=== PATIENT | male | born 1975 | race Caucasian/White ===

== ENCOUNTER → 2016-10-31 | Outpatient (REF) | payer OTHER ==
[~2016-10-31] MED LIST: CYCL5TA PO; LISI-538 PO; NAPR500T PO; OMEP40CA2 PO; SIMV40TA2 PO
[2016-10-31 14:25] LABS: BASO % 0.2 % (0.0-1.0); EOS # 0.1 K/mm3 (0.0-0.50); EOS % 1.6 % (0.0-3.0); LARGE UNSTAINED CELL # 0.1 K/mm3 (0.0-0.4); LARGE UNSTAINED CELL % 1.2 % (0.0-4.0); LYMPH # 1.9 K/mm3 (1.5-4.5); LYMPH % 21.1 % (24.0-44.0); MEAN CORPUSCULAR HEMOGLOBIN 35.7 pg (27.0-33.0); MEAN CORPUSCULAR HGB CONC 34.5 g/dl (32.0-36.5); MEAN CORPUSCULAR VOLUME 103.4 fl (80.0-96.0); MONO # 0.4 K/mm3 (0.0-0.8); MONO % 4.6 % (0.0-5.0); NEUTROPHILS # 6.1 K/mm3 (1.8-7.7); NEUTROPHILS % 71.3 % (36.0-66.0); PLATELET COUNT, AUTOMATED 201 k/mm3 (150-450); RED CELL DISTRIBUTION WIDTH 13.2 % (11.5-14.5); WHITE BLOOD COUNT 8.5 K/mm3 (4.0-10.0)
[2016-10-31 14:47] LABS: ALBUMIN 4.6 GM/DL (3.2-5.2); ALBUMIN/GLOBULIN RATIO 1.18 (1.00-1.93); ALKALINE PHOSPHATASE 76 U/L (45-117); ALT/SGPT 23 U/L (12-78); ANION GAP 8 MEQ/L (8-16); AST/SGOT 12 U/L (15-37); BILIRUBIN,TOTAL 0.5 MG/DL (0.2-1.0); BLOOD UREA NITROGEN 15 MG/DL (7-18); CALCIUM LEVEL 8.9 MG/DL (8.5-10.1); CARBON DIOXIDE LEVEL 26 MEQ/L (21-32); CHLORIDE LEVEL 104 MEQ/L (98-107); CHOLESTEROL LEVEL 318 MG/DL (<200); CREATININE FOR GFR 0.97 MG/DL (0.70-1.30); GLOMERULAR FILTRATION RATE > 60.0 (>60); GLUCOSE, FASTING 117 MG/DL (70-105); POTASSIUM SERUM 3.9 MEQ/L (3.5-5.1); SODIUM LEVEL 138 MEQ/L (136-145); TOTAL PROTEIN 8.5 GM/DL (6.4-8.2); TRIGLYCERIDES LEVEL 389 MG/DL (<150)
== END ==
LOC: M LAB REF 14:13
PROVIDERS: ATTEND Physician Assistant
DX: R53.83 Other fatigue (principal); R63.4 Abnormal weight loss

== ENCOUNTER → 2016-11-06 | Outpatient (REF) | payer OTHER | LOC: M LAB REF 16:12 | PROVIDERS: ATTEND Physician Assistant Medical | DX: J11.1 Influenza due to unidentified influenza virus with other respiratory manifestations (principal) ==

== ENCOUNTER 2016-11-10 08:17 | Emergency (ER) | payer OTHER ==
[~2016-11-10] VITALS: Ht 195.6 cm; Wt 111.1 kg
[2016-11-10] MEDS ORDERED: LISI-538 PO (08:30)
[2016-11-10] MEDS ORDERED: OMEP40CA2 PO (08:30)
[2016-11-10] MEDS ORDERED: SIMV40TA2 PO (08:30)
[2016-11-10] MEDS ORDERED: PERCOCET 5MG/325MG TAB PO ONE (08:45)
--- NOTE | 2016-11-10 09:11 | REP ---
Clinical: Trauma . Technique: AP, lateral, bilateral oblique views of the left elbow. Findings: No acute fracture or dislocation is appreciated. Joint spaces and surrounding soft tissues appear normal. Lateral view demonstrates normal positioning to the anterior and posterior fat pads without evidence for effusion/hemarthrosis. No subcutaneous emphysema or foreign body identified. Impression: Normal left elbow radiographs. Signed by Dutch Loera MD 11/10/2016 09:02 A
--- NOTE | 2016-11-10 09:12 | REP ---
Clinical: Trauma . Technique: Internal rotation, external rotation, and Y view left shoulder . Findings: No acute fracture or dislocation. The acromioclavicular and glenohumeral joints are intact. No periarticular calcifications or degenerative changes are appreciated. Sub acromial space is normal. Surrounding soft tissues are unremarkable. Impression: Normal left shoulder radiographs. Signed by Dutch Loera MD 11/10/2016 09:03 A
[2016-11-10] MEDS ORDERED: NAPR500T PO (09:59)
[2016-11-10] MEDS ORDERED: CYCL5TA PO (10:00)
[2016-11-10 10:18] VITALS: BP 159/101
== END 2016-11-10 10:19 | disposition home or self-care (01) ==
LOC: EDBD 08:17 → M ED 09:25
DX: S40.012A Contusion of left shoulder, initial encounter (principal); S50.02XA Contusion of left elbow, initial encounter; V87.8XXA Person injured in other specified noncollision transport accidents involving motor vehicle (traffic), initial encounter; Y92.410 Unspecified street and highway as the place of occurrence of the external cause; Y93.89 Activity, other specified; Y99.8 Other external cause status; I10 Essential (primary) hypertension; Z79.899 Other long term (current) drug therapy

== ENCOUNTER → 2017-03-22 | Outpatient (REF) | payer OTHER ==
[~2017-03-22] MED LIST changes: -CYCL5TA PO; +CYCL5TAB PO
[2017-03-22 17:54] LABS: BASO % 0.7 % (0.0-1.0); EOS # 0.2 K/mm3 (0.0-0.50); EOS % 2.9 % (0.0-3.0); LARGE UNSTAINED CELL # 0.2 K/mm3 (0.0-0.4); LARGE UNSTAINED CELL % 2.4 % (0.0-4.0); LYMPH # 2.5 K/mm3 (1.5-4.5); LYMPH % 36.8 % (24.0-44.0); MEAN CORPUSCULAR HEMOGLOBIN 34.7 pg (27.0-33.0); MEAN CORPUSCULAR HGB CONC 33.5 g/dl (32.0-36.5); MEAN CORPUSCULAR VOLUME 103.5 fl (80.0-96.0); MONO # 0.5 K/mm3 (0.0-0.8); MONO % 7.1 % (0.0-5.0); NEUTROPHILS # 3.2 K/mm3 (1.8-7.7); PLATELET COUNT, AUTOMATED 218 k/mm3 (150-450); RED CELL DISTRIBUTION WIDTH 12.4 % (11.5-14.5); WHITE BLOOD COUNT 6.3 K/mm3 (4.0-10.0)
[2017-03-22 19:52] LABS: ALBUMIN 3.9 GM/DL (3.2-5.2); ALBUMIN/GLOBULIN RATIO 1.18 (1.00-1.93); ALKALINE PHOSPHATASE 87 U/L (45-117); ALT/SGPT 27 U/L (12-78); ANION GAP 9 MEQ/L (8-16); AST/SGOT 16 U/L (15-37); BILIRUBIN,TOTAL 0.3 MG/DL (0.2-1.0); BLOOD UREA NITROGEN 17 MG/DL (7-18); CALCIUM LEVEL 8.6 MG/DL (8.5-10.1); CARBON DIOXIDE LEVEL 25 MEQ/L (21-32); CHLORIDE LEVEL 107 MEQ/L (98-107); CHOLESTEROL LEVEL 233 MG/DL (<200); CREATININE FOR GFR 0.84 MG/DL (0.70-1.30); FREE T4 0.87 NG/DL (0.76-1.46); GLOMERULAR FILTRATION RATE > 60.0 (>60); GLUCOSE, FASTING 103 MG/DL (70-105); POTASSIUM SERUM 4.2 MEQ/L (3.5-5.1); SODIUM LEVEL 141 MEQ/L (136-145); TOTAL PROTEIN 7.2 GM/DL (6.4-8.2); TRIGLYCERIDES LEVEL 220 MG/DL (<150)
== END ==
LOC: M SFHCCAPE 07:00
PROVIDERS: ATTEND Physician Assistant
DX: E78.2 Mixed hyperlipidemia (principal)

== ENCOUNTER → 2017-09-13 | Outpatient (REF) | payer OTHER ==
[2017-09-13 17:07] LABS: INFLUENZA A AMPLIFICATION POSITIVE (NEGATIVE); INFLUENZA B AMPLIFICATION NEGATIVE (NEGATIVE); RSV AMPLIFICATION NEGATIVE (NEGATIVE)
== END ==
LOC: M LAB REF 16:23
DX: J11.1 Influenza due to unidentified influenza virus with other respiratory manifestations (principal)

== ENCOUNTER → 2018-07-24 | Outpatient (CLI) | payer MEDICAID | LOC: M OUTALCOH 09:23 | DX: Z13.9 Encounter for screening, unspecified (principal); F10.20 Alcohol dependence, uncomplicated ==

== ENCOUNTER 2018-07-27 01:27 | Emergency (ER) | payer OTHER, MEDICAID ==
[2018-07-27] MEDS ORDERED: HYDROMORPHONE HCL 0.5 MG/ 0.5 ML SYRINGE (J1170 PER 1) As Ordered (01:45)
[2018-07-27] MEDS: HYDROMORPHONE HCL 0.5 MG/ 0.5 ML SYRINGE (J1170 PER 1) IM (01:48)
[2018-07-27] MEDS: BUPIVACAINE LIPOSOME/PF 1.3% 20ML VIAL (13.3MG/ML)(EXPAREL)(C9290 PER1MG) INFIL (02:20)
== END 2018-07-27 03:11 | disposition home or self-care (01) ==
LOC: M ED 01:27
DX: S22.32XA Fracture of one rib, left side, initial encounter for closed fracture (principal); W18.39XA Other fall on same level, initial encounter; Y92.89 Other specified places as the place of occurrence of the external cause; I10 Essential (primary) hypertension; K21.9 Gastro-esophageal reflux disease without esophagitis; Z79.899 Other long term (current) drug therapy
CPT/HCPCS: C9290

== ENCOUNTER → 2018-08-13 | Outpatient (RCR) | payer MEDICAID ==
[~2018-08-13] MED LIST changes: +NAPR-50 PO; -NAPR500T PO
== END ==
LOC: M OUTALCOH 10:15
PROVIDERS: ATTEND Psychiatry & Neurology Psychiatry
DX: F10.20 Alcohol dependence, uncomplicated (principal)

== ENCOUNTER 2018-09-05 15:03 | Outpatient (RCR) | payer MEDICAID | END 2018-09-13 | LOC: M OUTALCOH 15:03 | PROVIDERS: ATTEND Psychiatry & Neurology Psychiatry | DX: F10.20 Alcohol dependence, uncomplicated (principal); F11.10 Opioid abuse, uncomplicated ==

== ENCOUNTER 2018-09-20 15:08 | Outpatient (RCR) | payer MEDICAID | END 2018-10-11 | LOC: M OUTALCOH 15:08 | PROVIDERS: ATTEND Psychiatry & Neurology Psychiatry | DX: F10.20 Alcohol dependence, uncomplicated (principal); F11.10 Opioid abuse, uncomplicated ==

== ENCOUNTER 2018-11-09 09:59 | Outpatient (RCR) | payer MEDICAID | END 2018-11-11 | LOC: M OUTALCOH 09:59 | PROVIDERS: ATTEND Psychiatry & Neurology Psychiatry | DX: F10.20 Alcohol dependence, uncomplicated (principal); F11.10 Opioid abuse, uncomplicated ==

== ENCOUNTER 2018-12-06 10:00 | Outpatient (RCR) | payer MEDICAID ==
[~2018-12-06 10:00] MED LIST changes: -NAPR-50 PO; +NAPR-837 PO
== END 2018-12-11 ==
LOC: M OUTALCOH 10:00
PROVIDERS: ATTEND Psychiatry & Neurology Psychiatry
DX: F10.20 Alcohol dependence, uncomplicated (principal); F11.10 Opioid abuse, uncomplicated

== ENCOUNTER → 2018-12-12 | Outpatient (REF) | payer OTHER ==
[2018-12-12 12:10] LABS: ALBUMIN 4.4 GM/DL (3.2-5.2); ALT/SGPT 25 U/L (12-78); BILIRUBIN,TOTAL 0.4 MG/DL (0.2-1.0); BLOOD UREA NITROGEN 18 MG/DL (7-18); CALCIUM LEVEL 9.9 MG/DL (8.5-10.1); CARBON DIOXIDE LEVEL 29 MEQ/L (21-32); CHLORIDE LEVEL 105 MEQ/L (98-107); CHOLESTEROL LEVEL 275 MG/DL (<200); CHOLESTEROL RISK RATIO 3.873 (<5); CREATININE FOR GFR 1.07 MG/DL (0.70-1.30); GLOMERULAR FILTRATION RATE > 60.0 (>60); GLUCOSE, FASTING 101 MG/DL (70-100); HDL CHOLESTEROL 71 MG/DL (>40); LDL CHOLESTEROL 180 MG/DL (<100); NON-HDL-C 204 MG/DL; POTASSIUM SERUM 4.9 MEQ/L (3.5-5.1); SODIUM LEVEL 138 MEQ/L (136-145); TOTAL PROTEIN 8.2 GM/DL (6.4-8.2); TRIGLYCERIDES LEVEL 122 MG/DL (<150)
[2018-12-12 12:15] LABS: TOTAL 25(OH) VITAMIN D 43.3 NG/ML (30.0-100.0)
== END ==
LOC: M SFHCPLAZ 10:33
PROVIDERS: ATTEND Family Medicine
DX: I10 Essential (primary) hypertension (principal); Z86.39 Personal history of other endocrine, nutritional and metabolic disease; E55.9 Vitamin D deficiency, unspecified

== ENCOUNTER → 2019-01-11 | Outpatient (RCR) | payer MEDICAID | LOC: M OUTALCOH 12-12 14:00 | PROVIDERS: ATTEND Psychiatry & Neurology Psychiatry | DX: F10.20 Alcohol dependence, uncomplicated (principal); F11.10 Opioid abuse, uncomplicated ==

== ENCOUNTER 2019-02-08 14:46 | Outpatient (RCR) | payer MEDICAID | END 2019-02-10 | LOC: M OUTALCOH 14:46 | PROVIDERS: ATTEND Psychiatry & Neurology Psychiatry | DX: F10.20 Alcohol dependence, uncomplicated (principal); F11.10 Opioid abuse, uncomplicated ==

== ENCOUNTER 2019-03-08 08:19 | Outpatient (RCR) | payer MEDICAID | END 2019-03-13 | LOC: M OUTALCOH 08:19 | PROVIDERS: ATTEND Psychiatry & Neurology Psychiatry | DX: F10.20 Alcohol dependence, uncomplicated (principal); F11.10 Opioid abuse, uncomplicated ==

== ENCOUNTER 2019-04-08 16:00 | Outpatient (RCR) | payer MEDICAID | END 2019-04-13 | LOC: M OUTALCOH 16:00 | PROVIDERS: ATTEND Psychiatry & Neurology Psychiatry | DX: F10.20 Alcohol dependence, uncomplicated (principal); F11.10 Opioid abuse, uncomplicated ==

== ENCOUNTER 2019-05-08 06:40 | Emergency (ER) | payer MEDICAID, OTHER ==
[~2019-05-08] VITALS: Ht 195.6 cm; Wt 113.6 kg
--- NOTE | 2019-05-08 07:29 | REP ---
Clinical: Trauma. Technique: AP, lateral, bilateral oblique views of the right foot. Findings: There is a comminuted nondisplaced fracture involving the first toe distal phalanx with overlying soft tissue swelling. Remainder examination appears relatively normal for age. Mild hallux valgus deformity noted. Impression: Comminuted nondisplaced fracture of the first toe distal phalanx. Electronically Signed by Dutch Loera MD 05/08/2019 07:21 A
[2019-05-08] MEDS ORDERED: NORCO, ANEXSIA 5/325MG TABLET (HYDROcodone/ACETAMINOPHEN) PO ONE (07:30)
[2019-05-08] MEDS ORDERED: NORC1TAB7 PO (07:30)
[2019-05-08] MEDS ORDERED: NORCO, ANEXSIA 5/325MG TABLET (HYDROcodone/ACETAMINOPHEN) As Ordered ONE (08:17)
[2019-05-08 08:30] VITALS: BP 170/110
[2019-05-08] MEDS ORDERED: TRAZ150T90 (09:15)
[2019-05-08] MEDS ORDERED: LANS15CA3 (09:15)
[2019-05-08] MEDS ORDERED: BUPR300T34 (09:15)
[2019-05-08] MEDS ORDERED: NALT50TA4 (09:15)
[2019-05-08] MEDS ORDERED: METO1TAB87 PO (09:15)
== END 2019-05-08 08:30 | disposition home or self-care (01) ==
LOC: M ED 06:40
DX: S92.424A Nondisplaced fracture of distal phalanx of right great toe, initial encounter for closed fracture (principal); W27.8XXA Contact with other nonpowered hand tool, initial encounter; Y29.XXXA Contact with blunt object, undetermined intent, initial encounter; Y99.0 Civilian activity done for income or pay; Z79.899 Other long term (current) drug therapy

== ENCOUNTER → 2019-05-13 | Outpatient (RCR) | payer MEDICAID ==
[~2019-05-13] MED LIST changes: +BUPR300T34; +LANS15CA3; +METO1TAB87 PO; +NALT50TA4; +NORC1TAB7 PO; +TRAZ150T90
== END ==
LOC: M OUTALCOH 04-22 10:20
PROVIDERS: ATTEND Psychiatry & Neurology Psychiatry
DX: F10.20 Alcohol dependence, uncomplicated (principal); F11.10 Opioid abuse, uncomplicated

== ENCOUNTER 2019-06-07 09:24 | Outpatient (RCR) | payer MEDICAID ==
[~2019-06-07 09:24] MED LIST changes: -OMEP40CA2 PO; +OMEP40CA97 PO
== END 2019-06-13 ==
LOC: M OUTALCOH 09:24
PROVIDERS: ATTEND Psychiatry & Neurology Psychiatry
DX: F10.20 Alcohol dependence, uncomplicated (principal); F11.10 Opioid abuse, uncomplicated

== ENCOUNTER 2019-07-05 09:26 | Outpatient (RCR) | payer MEDICAID ==
[~2019-07-05 09:26] MED LIST changes: -SIMV40TA2 PO; +SIMV40TA20 PO
== END 2019-07-13 ==
LOC: M OUTALCOH 09:26
PROVIDERS: ATTEND Psychiatry & Neurology Psychiatry
DX: F10.20 Alcohol dependence, uncomplicated (principal); F11.10 Opioid abuse, uncomplicated

== ENCOUNTER 2020-01-31 16:15 | Emergency (ER) | payer MEDICAID, OTHER ==
[~2020-01-31] VITALS: Ht 195.6 cm; Wt 111.6 kg
[~2020-01-31 16:15] MED LIST changes: -BUPR300T34; +BUPR300T92
[2020-01-31] MEDS ORDERED: ACAM0.05 (16:22)
[2020-01-31] MEDS ORDERED: THERTAB56 (16:22)
[2020-01-31] MEDS ORDERED: FLUO20CA22 (16:22)
[2020-01-31] MEDS ORDERED: HYDR50TA70 (16:22)
[2020-01-31] MEDS ORDERED: FOLI1TAB11 (16:22)
[2020-01-31] MEDS ORDERED: LISI-542 (16:22)
[2020-01-31 17:22] VITALS: BP 130/88
[2020-01-31] MEDS ORDERED: OXAZEPAM 15 MG CAP PO ONE (17:30)
[2020-01-31] MEDS ORDERED: OXAZ30CA2 PO (18:37)
== END 2020-01-31 18:52 | disposition home or self-care (01) ==
LOC: M ED 16:15
DX: F10.10 Alcohol abuse, uncomplicated (principal)

== ENCOUNTER 2020-02-13 19:23 | Emergency (ER) | payer OTHER ==
[~2020-02-13] VITALS: Ht 198.1 cm; Wt 113.6 kg
[~2020-02-13 19:23] MED LIST changes: +ACAM0.05; +FLUO20CA22; +FOLI1TAB11; +HYDR50TA70; +LISI-542; +OXAZ30CA2 PO; +THERTAB56
[2020-02-13 22:56] VITALS: BP 135/95
== END 2020-02-13 23:12 | disposition home or self-care (01) ==
LOC: M ED 19:23
DX: F10.220 Alcohol dependence with intoxication, uncomplicated (principal); F32.9 Major depressive disorder, single episode, unspecified; I10 Essential (primary) hypertension; K21.9 Gastro-esophageal reflux disease without esophagitis; Z79.899 Other long term (current) drug therapy
CPT/HCPCS: 99284; G0480

== ENCOUNTER 2020-03-28 10:08 | Inpatient (IN) | payer OTHER ==
[~2020-03-28 10:08] MED LIST changes: -ACAM0.05; +ACAM0.05 PO; -FOLI1TAB11; +FOLI1TAB11 PO; -LISI-542; +LISI-542 PO
[2020-03-28] MEDS ORDERED: LORazepam 2 MG/ML VIAL As Ordered ONE ×3 (10:31→13:02)
[2020-03-28] MEDS ORDERED: ISOVUE-370 76% 100ML VIAL As Ordered ONE (11:08)
[2020-03-28] MEDS ORDERED: lisinopriL 5 MG TAB As Ordered ONE (13:07)
[2020-03-28] MEDS ORDERED: LORazepam 1 MG TAB As Ordered ONE ×2 (20:38→22:22)
[2020-03-28] MEDS ORDERED: ONDANSETRON 4 MG TAB As Ordered ONE (20:38)
[2020-03-28] MEDS ORDERED: MVI -ADULT INJECTION 10ML VIAL ONE (21:00)
[2020-03-28] MEDS ORDERED: SODIUM CHLORIDE 0.9% 1000ML ONE (21:00)
[2020-03-28] MEDS ORDERED: THIAMINE 200MG/2ML VIAL (J3411 PER 100MG) ONE (21:00)
[2020-03-28] MEDS ORDERED: FOLIC ACID 1MG/0.2ML VIAL ONE (21:00)
[2020-03-28] MEDS ORDERED: THIAMINE 100 MG TAB As Ordered ONE (22:33)
[2020-03-29] MEDS ORDERED: LORazepam 1 MG TAB As Ordered ONE ×4 (05:20→20:29)
[2020-03-29] MEDS ORDERED: THIAMINE 100 MG TAB As Ordered ONE ×2 (08:39→20:28)
[2020-03-29] MEDS ORDERED: PANTOPRAZOLE 40MG TAB (PROTONIX) As Ordered ONE (08:39)
[2020-03-29] MEDS ORDERED: FLUoxetine 20 MG CAP As Ordered ONE (08:39)
[2020-03-29] MEDS ORDERED: MULTIVITAMINS/MINERALS THERAP 1 TAB As Ordered ONE (08:39)
[2020-03-29] MEDS ORDERED: NICOTINE 21MG/24HR 1 EA TRANSDERMAL As Ordered ONE (08:40)
[2020-03-29] MEDS ORDERED: ENOXAPARIN 40MG/0.4ML SYRINGE (J1650 PER 10MG) As Ordered ONE (08:40)
[2020-03-29] MEDS ORDERED: lisinopriL 5 MG TAB As Ordered ONE (08:40)
[2020-03-29] MEDS ORDERED: FOLIC ACID 1 MG TAB As Ordered ONE (08:40)
[2020-03-29] MEDS ORDERED: OXAZEPAM 10 MG CAP As Ordered ONE ×3 (10:43→20:28)
[2020-03-30] MEDS ORDERED: LORazepam 1 MG TAB As Ordered ONE ×5 (01:37→18:23)
[2020-03-30] MEDS ORDERED: THIAMINE 100 MG TAB As Ordered ONE ×2 (07:50→22:14)
[2020-03-30] MEDS ORDERED: PANTOPRAZOLE 40MG TAB (PROTONIX) As Ordered ONE (07:50)
[2020-03-30] MEDS ORDERED: FLUoxetine 20 MG CAP As Ordered ONE (07:50)
[2020-03-30] MEDS ORDERED: MULTIVITAMINS/MINERALS THERAP 1 TAB As Ordered ONE (07:50)
[2020-03-30] MEDS ORDERED: FOLIC ACID 1 MG TAB As Ordered ONE (07:51)
[2020-03-30] MEDS ORDERED: OXAZEPAM 10 MG CAP As Ordered ONE ×3 (07:51→20:20)
[2020-03-30] MEDS ORDERED: lisinopriL 10 MG TAB As Ordered ONE (07:51)
[2020-03-30] MEDS ORDERED: NICOTINE 21MG/24HR 1 EA TRANSDERMAL As Ordered ONE (07:51)
[2020-03-30] MEDS ORDERED: ACETAMINOPHEN TAB 650MG DOSE (2X325MG) As Ordered ONE (20:19)
[2020-03-31] MEDS ORDERED: LORazepam 1 MG TAB As Ordered ONE ×3 (00:34→12:33)
[2020-03-31] MEDS ORDERED: FLUoxetine 20 MG CAP As Ordered ONE (08:15)
[2020-03-31] MEDS ORDERED: PANTOPRAZOLE 40MG TAB (PROTONIX) As Ordered ONE (08:15)
[2020-03-31] MEDS ORDERED: MULTIVITAMINS/MINERALS THERAP 1 TAB As Ordered ONE (08:15)
[2020-03-31] MEDS ORDERED: lisinopriL 10 MG TAB As Ordered ONE (08:15)
[2020-03-31] MEDS ORDERED: NICOTINE 21MG/24HR 1 EA TRANSDERMAL As Ordered ONE (08:16)
[2020-03-31] MEDS ORDERED: OXAZEPAM 10 MG CAP As Ordered ONE (08:16)
[2020-03-31] MEDS ORDERED: FOLIC ACID 1 MG TAB As Ordered ONE (08:16)
[2020-03-31] MEDS ORDERED: LORazepam 2 MG TAB PO PRN (12:15)
[2020-03-31] MEDS ORDERED: ONDANSETRON 4 MG TAB PO PRN (12:15)
[2020-03-31] MEDS ORDERED: ACETAMINOPHEN TAB 650MG DOSE (2X325MG) PO PRN (12:15)
[2020-03-31] MEDS ORDERED: SLF 3 ML SYR IV PRN (13:15)
[2020-03-31 20:00] VITALS: BP 130/80
[2020-03-31] MEDS: SLF 3 ML SYR IV SCH ×2 (21:00→21:02)
[2020-03-31] MEDS: OXAZEPAM 10 MG CAP PO SCH (21:00)
[2020-03-31 21:36] LABS: HEMATOCRIT 39.7 % (42.0-52.0); HEMOGLOBIN 13.8 g/dl (13.5-17.5); MEAN CORPUSCULAR HEMOGLOBIN 32.3 pg (27.0-33.0); MEAN CORPUSCULAR HGB CONC 34.8 g/dl (32.0-36.5); RED BLOOD COUNT 4.27 10^6/uL (4.30-6.10); WHITE BLOOD COUNT 4.8 10^3/uL (4.0-10.0)
[2020-03-31 21:45] LABS: PLATELET COUNT, AUTOMATED 89 10^3/uL (150-450)
[2020-04-01] VITALS: BP 122/88
[2020-04-01 04:00] VITALS: BP 138/78
[2020-04-01] MEDS: SLF 3 ML SYR IV SCH ×2 (05:44→14:23)
[2020-04-01 06:56] LABS: HEMATOCRIT 38.7 % (42.0-52.0); HEMOGLOBIN 13.4 g/dl (13.5-17.5); MEAN CORPUSCULAR HGB CONC 34.6 g/dl (32.0-36.5); MEAN CORPUSCULAR VOLUME 92.4 fl (80.0-96.0); RED BLOOD COUNT 4.19 10^6/uL (4.30-6.10); WHITE BLOOD COUNT 4.9 10^3/uL (4.0-10.0)
[2020-04-01 06:57] LABS: PLATELET COUNT, AUTOMATED 98 10^3/uL (150-450)
[2020-04-01 07:17] LABS: ALBUMIN 3.4 GM/DL (3.2-5.2); ALT/SGPT 176 U/L (12-78); BILIRUBIN,TOTAL 0.6 MG/DL (0.2-1.0); BLOOD UREA NITROGEN 14 MG/DL (7-18); CALCIUM LEVEL 8.8 MG/DL (8.5-10.1); CARBON DIOXIDE LEVEL 26 MEQ/L (21-32); CHLORIDE LEVEL 107 MEQ/L (98-107); CREATININE FOR GFR 0.79 MG/DL (0.70-1.30); GLOMERULAR FILTRATION RATE > 60.0 (>60); GLUCOSE, FASTING 105 MG/DL (70-100); POTASSIUM SERUM 3.4 MEQ/L (3.5-5.1); SODIUM LEVEL 139 MEQ/L (136-145); TOTAL PROTEIN 6.8 GM/DL (6.4-8.2)
[2020-04-01 08:00] VITALS: BP 118/88
[2020-04-01] MEDS ORDERED: METO1TAB32 PO (08:05)
[2020-04-01] MEDS ORDERED: HYDR-3363 PO (08:05)
[2020-04-01] MEDS ORDERED: OMEP-221 PO (08:05)
[2020-04-01] MEDS ORDERED: FLUO40CA PO (08:05)
[2020-04-01] MEDS ORDERED: NALT50TA4 PO (08:05)
[2020-04-01] MEDS ORDERED: FOLIC ACID 1 MG TAB PO SCH (09:00)
[2020-04-01] MEDS ORDERED: lisinopriL 20 MG TAB PO SCH (09:00)
[2020-04-01] MEDS ORDERED: NICOTINE 21MG/24HR 1 EA TRANSDERMAL TD SCH (09:00)
[2020-04-01] MEDS ORDERED: lisinopriL 10 MG TAB PO SCH (09:00)
[2020-04-01] MEDS ORDERED: FLUoxetine 20 MG CAP PO SCH (09:00)
[2020-04-01] MEDS ORDERED: PANTOPRAZOLE 40MG TAB (PROTONIX) PO SCH (09:00)
[2020-04-01] MEDS ORDERED: MULTIVITAMINS/MINERALS THERAP 1 TAB PO SCH (09:00)
[2020-04-01 09:05] VITALS: BP 118/88
[2020-04-01] MEDS: OXAZEPAM 10 MG CAP PO SCH (09:06)
[2020-04-01 10:40] LABS: HEPATITIS B SURFACE ANTIGEN NEGATIVE (NEGATIVE)
[2020-04-01] MEDS ORDERED: FOLI1TAB11 PO (11:39)
[2020-04-01] MEDS ORDERED: PANT40TA29 PO (11:39)
[2020-04-01] MEDS ORDERED: FLUO20CA22 PO (11:39)
[2020-04-01] MEDS ORDERED: OXAZ10CA3 PO ×3 (11:39→12:24)
[2020-04-01] MEDS ORDERED: LISI-538 PO (11:39)
[2020-04-01 12:00] VITALS: BP_SYST 129; BP_SYST 142; BP_DIAS 72; BP_DIAS 97
[2020-04-01] MEDS ORDERED: POTASSIUM CHLORIDE 10 MEQ SR TABLET PO ONE (12:00)
--- NOTE | 2020-04-01 21:11 | DS.PDOC ---
Discharge Summary General Date of Admission Mar 28, 2020 at 13:27 Date of Discharge 04/01/20 Primary Care Physician: Lyssa Aquino Attending Physician: JOSE SCHULTZ MD Discharge Summary PROCEDURES PERFORMED DURING STAY: [None]. ADMITTING DIAGNOSES: 1. ETOH WITHDRAWAL 2. HTN 3. TRANSAMINITIS 4. NICOTINE DEPENDENCE 5. DEPRESSION 6. ANXIETY 7. THROMBOCYTOPENIA DISCHARGE DIAGNOSES: 1. ETOH WITHDRAWAL 2. HTN 3. TRANSAMINITIS 4. NICOTINE DEPENDENCE 5. DEPRESSION 6. ANXIETY 7. THROMBOCYTOPENIA COMPLICATIONS/CHIEF COMPLAINT: Withdrawal. HISTORY OF PRESENT ILLNESS: This is a 45 yo M with a hx of chronic etoh use, frequent episodes of etoh withdrawal. Admitted for acute etoh withdrawal. Drink 1 bottle of vodka per day. HOSPITAL COURSE: The following problems were addressed 1. Acute etoh withdrawal: CIWA 4. Serax 20 mg PO TID. Ativan 2 mg PO q8h prn. Zofran prn. Thiamine, folate. Rehab information provided. Will give 3 additional days of serax on DC. 2. HTN: continue lisinopril on DC. 3. Transaminits: likely related to chronic etoh use. Negative Hep B screen. Hep A pending. Outpatient liver US. 4. Nicotine dependence: nicotine patch daily 5. Depression/anxiety: continue home meds 6. GI ppx: PPI 7. Thrombocytopenia: PLT stable, likely related to chronic etoh. 8. DVT ppx: SCDs, ambulation DISCHARGE MEDICATIONS: Please see below. ALLERGIES: Please see below. PHYSICAL EXAMINATION ON DISCHARGE: GENERAL: NAD, mildly tremulous HEENT: PERRLA, EOMI CARDIOVASCULAR: RRR, normal S2, S2. RESPIRATORY: lungs CTAB, no rales, no wheezing. ABDOMINAL: soft, non tender, BS+ EXTREMITIES: no deformity NEUROLOGICAL: AAO x 3, no focal neuro deficits PSYCHOLOGICAL: wnl LABORATORY DATA: Please see below. ACTIVITY: As tolerated DIET: as tolerated DISCHARGE PLAN: DC home with 3 days of oxazepam. Close PCP follow up. DISPOSITION: 01 Home, Self-Care. DISCHARGE INSTRUCTIONS: 1. complete 3 days of oxazepam 2. DO NOT CONSUME alcohol 3. close PCP follow up 4. Rehab program materials given ITEMS TO FOLLOWUP ON ON OUTPATIENT: 1. Transaminits - please follow up on outpatient liver US DISCHARGE CONDITION: [Stable]. TIME SPENT ON DISCHARGE: Greater than [30] minutes. Vital Signs/I&Os Vital Signs Date Time Temp Pulse Resp B/P (MAP) Pulse Ox O2 Delivery O2 Flow Rate FiO2 04/01/20 12:00 98.2 89 18 129/97 (108) 98 Room Air I&O- Last 24 Hours up to 6 AM 04/01/20 06:00 Intake Total 300 ml Balance 300 ml Laboratory Data Labs 24H Laboratory Tests 2 04/01/20 06:00: Nucleated Red Blood Cells % (auto) 0.0, Anion Gap 6L, Glomerular Filtration Rate > 60.0, Calcium Level 8.8, Total Bilirubin 0.6, Aspartate Amino Transf (AST/SGOT) 152H, Alanine Aminotransferase (ALT/SGPT) 176H, Alkaline Phosphatase 116, Total Protein 6.8, Albumin 3.4, Albumin/Globulin Ratio 1.0, Hepatitis B Surface Antigen NEGATIVE CBC/BMP Laboratory Tests 04/01/20 06:00 Discharge Medications Scheduled Acamprosate Calcium (Acamprosate Calcium) 333 Mg Tablet.dr, 666 MG PO TID, (Reported) Fluoxetine Hcl (Fluoxetine HCl) 40 Mg Capsule, 40 MG PO DAILY, (Reported) Fluoxetine Hcl (Fluoxetine HCl) 20 Mg Capsule, 40 MG PO DAILY Folic Acid (Folic Acid) 1 Mg Tablet, 1 MG PO DAILY, (Reported) Folic Acid (Folic Acid) 1 Mg Tablet, 1 MG PO DAILY Lisinopril (Lisinopril) 20 Mg Tablet, 20 MG PO DAILY Naltrexone HCl (Naltrexone HCl) 50 Mg Tablet, 50 MG PO QHS, (Reported) Omeprazole (Omeprazole) 40 Mg Capsule.dr, 40 MG PO DAILY, (Reported) Oxazepam (Oxazepam) 10 Mg Capsule, 20 MG PO TID Pantoprazole Sodium (Pantoprazole Sodium) 40 Mg Tablet.dr, 40 MG PO DAILY Allergies Coded Allergies: No Known Allergies (Unverified , 11/10/16) JOSE SCHULTZ MD Apr 01, 2020 21:11
--- NOTE | 2020-04-01 21:11 | IPNPDOC ---
Date Seen The patient was seen on 04/01/20. Progress Note SUBJECTIVE: doing well, mild tremulousness, ambulating well, steady gait. No fever, chills. Denies SI/HI, no AH/VH. No n/v/d. OBJECTIVE PHYSICAL EXAMINATION: VITAL SIGNS: Please see below. GENERAL: NAD, mildly tremulous HEENT: PERRLA, EOMI CARDIOVASCULAR: RRR, normal S2, S2. RESPIRATORY: lungs CTAB, no rales, no wheezing. ABDOMINAL: soft, non tender, BS+ EXTREMITIES: no deformity NEUROLOGICAL: AAO x 3, no focal neuro deficits PSYCHOLOGICAL: wnl LABORATORY DATA, IMAGING STUDIES, MICROBIOLOGY: Please see below. DVT prophylaxis ordered?: SCDs, ambulation ASSESSMENT AND PLAN: This is a 45 yo M with a hx of chronic etoh use, frequent episodes of etoh withdrawal. Admitted for acute etoh withdrawal. Drink 1 bottle of vodka per day. Wishes to enter rehab program. PROBLEMS: 1. Acute etoh withdrawal: CIWA 4. Serax 20 mg PO TID. Ativan 2 mg PO q8h prn. Zofran prn. Thiamine, folate. Rehab information provided. Will give 3 additional days of serax on DC. 2. HTN: continue lisinopril on DC. 3. Transaminits: likely related to chronic etoh use. Negative Hep B screen. Hep A pending. 4. Nicotine dependence: nicotine patch daily 5. Depression/anxiety: continue home meds 6. GI ppx: PPI 7. Thrombocytopenia: PLT stable, likely related to chronic etoh. 8. DVT ppx: SCDs, ambulation Dispol: DC home. Plan for rehab. VS, I&O, 24H, Fishbone Vital Signs/I&O Vital Signs Date Time Temp Pulse Resp B/P (MAP) Pulse Ox O2 Delivery O2 Flow Rate FiO2 04/01/20 09:05 118/88 04/01/20 08:00 97.6 74 16 98 Room Air I&O- Last 24 Hours up to 6 AM 04/01/20 06:00 Intake Total 300 ml Balance 300 ml Laboratory Data 24H LABS Laboratory Tests 2 04/01/20 06:00: Nucleated Red Blood Cells % (auto) 0.0, Anion Gap 6L, Glomerular Filtration Rate > 60.0, Calcium Level 8.8, Total Bilirubin 0.6, Aspartate Amino Transf (AST/SGOT) 152H, Alanine Aminotransferase (ALT/SGPT) 176H, Alkaline Phosphatase 116, Total Protein 6.8, Albumin 3.4, Albumin/Globulin Ratio 1.0, Hepatitis B Surface Antigen NEGATIVE CBC/BMP Laboratory Tests 04/01/20 06:00 JOSE SCHULTZ MD Apr 01, 2020 11:29
[2020-04-04 23:24] LABS: ALBUMIN 3.3 GM/DL (3.2-5.2); ALT/SGPT 117 U/L (12-78); BILIRUBIN,TOTAL 0.6 MG/DL (0.2-1.0); BLOOD UREA NITROGEN 11 MG/DL (7-18); CALCIUM LEVEL 8.7 MG/DL (8.5-10.1); CARBON DIOXIDE LEVEL 28 MEQ/L (21-32); CHLORIDE LEVEL 107 MEQ/L (98-107); CREATININE FOR GFR 0.85 MG/DL (0.70-1.30); GLOMERULAR FILTRATION RATE > 60.0 (>60); GLUCOSE, FASTING 105 MG/DL (70-100); POTASSIUM SERUM 3.5 MEQ/L (3.5-5.1); SODIUM LEVEL 140 MEQ/L (136-145); TOTAL PROTEIN 6.7 GM/DL (6.4-8.2)
[2020-04-05 19:33] LABS: HEMATOCRIT 39.1 % (42.0-52.0); HEMOGLOBIN 13.6 g/dl (13.5-17.5); MEAN CORPUSCULAR VOLUME 93.8 fl (80.0-96.0); RED BLOOD COUNT 4.17 10^6/uL (4.30-6.10); WHITE BLOOD COUNT 3.8 10^3/uL (4.0-10.0)
[2020-04-05 19:34] LABS: MEAN CORPUSCULAR HEMOGLOBIN 32.6 pg (27.0-33.0); MEAN CORPUSCULAR HGB CONC 34.8 g/dl (32.0-36.5); PLATELET COUNT, AUTOMATED 88 10^3/uL (150-450)
--- NOTE | 2020-05-01 15:06 | ECGEPIP ---
SINUS TACHYCARDIA ABNORMAL RHYTHM ECG NONSPECIFIC ST & T WAVE CHANGE NO PRIOR DUE TO DOWNTIME SEE SCANNED DOWNTIME REPORT MTDD
[2020-05-11 13:33] LABS: BASO % 0.7 % (0.0-1.0); EOS % 0.4 % (0.0-3.0); HEMATOCRIT 45.2 % (42.0-52.0); HEMOGLOBIN 15.5 g/dl (13.5-17.5); LYMPH # 1.3 10^3/uL (1.5-5.0); LYMPH % 29.3 % (24.0-44.0); MEAN CORPUSCULAR HGB CONC 34.3 g/dl (32.0-36.5); MEAN CORPUSCULAR VOLUME 93.2 fl (80.0-96.0); MONO # 0.3 10^3/uL (0.0-0.8); MONO % 6.1 % (0.0-5.0); NEUTROPHILS # 2.9 10^3/uL (1.5-8.5); NEUTROPHILS % 63.3 % (36.0-66.0); PLATELET COUNT, AUTOMATED 140 10^3/uL (150-450); RED BLOOD COUNT 4.85 10^6/uL (4.30-6.10); WHITE BLOOD COUNT 4.6 10^3/uL (4.0-10.0)
[2020-06-08 13:43] LABS: HEMATOCRIT 39.9 % (42.0-52.0); HEMOGLOBIN 13.8 g/dl (13.5-17.5); MEAN CORPUSCULAR HEMOGLOBIN 32.4 pg (27.0-33.0); MEAN CORPUSCULAR HGB CONC 34.6 g/dl (32.0-36.5); MEAN CORPUSCULAR VOLUME 93.7 fl (80.0-96.0); PLATELET COUNT, AUTOMATED 95 10^3/uL (150-450); RED BLOOD COUNT 4.26 10^6/uL (4.30-6.10); WHITE BLOOD COUNT 3.7 10^3/uL (4.0-10.0)
[2020-06-14 09:40] LABS: ALBUMIN 3.4 GM/DL (3.2-5.2); ALT/SGPT 77 U/L (12-78); BILIRUBIN,TOTAL 1.2 MG/DL (0.2-1.0); BLOOD UREA NITROGEN 9 MG/DL (7-18); CALCIUM LEVEL 8.2 MG/DL (8.5-10.1); CARBON DIOXIDE LEVEL 28 MEQ/L (21-32); CHLORIDE LEVEL 105 MEQ/L (98-107); CREATININE FOR GFR 0.89 MG/DL (0.70-1.30); GLOMERULAR FILTRATION RATE > 60.0 (>60); GLUCOSE, FASTING 99 MG/DL (70-100); POTASSIUM SERUM 3.4 MEQ/L (3.5-5.1); SODIUM LEVEL 139 MEQ/L (136-145); TOTAL PROTEIN 6.4 GM/DL (6.4-8.2)
[2020-06-21 08:12] LABS: ALBUMIN 3.2 GM/DL (3.2-5.2); ALT/SGPT 90 U/L (12-78); BILIRUBIN,TOTAL 0.8 MG/DL (0.2-1.0); BLOOD UREA NITROGEN 8 MG/DL (7-18); CALCIUM LEVEL 8.3 MG/DL (8.5-10.1); CARBON DIOXIDE LEVEL 27 MEQ/L (21-32); CHLORIDE LEVEL 109 MEQ/L (98-107); GLOMERULAR FILTRATION RATE > 60.0 (>60); GLUCOSE, FASTING 105 MG/DL (70-100); POTASSIUM SERUM 3.5 MEQ/L (3.5-5.1); SODIUM LEVEL 140 MEQ/L (136-145); TOTAL PROTEIN 6.3 GM/DL (6.4-8.2)
[2020-06-21 11:45] LABS: ACETAMINOPHEN LEVEL < 2.0 UG/ML (10.0-30.0)
[2020-06-21 11:49] LABS: ALBUMIN 4.1 GM/DL (3.2-5.2); ALT/SGPT 74 U/L (12-78); AMPHETAMINES LEVEL URINE NEGATIVE (NEGATIVE); BARBITURATES URINE NEGATIVE (NEGATIVE); BENZODIAZEPINES URINE POSITIVE (NEGATIVE); BILIRUBIN,DIRECT 0.3 MG/DL (0.0-0.2); BILIRUBIN,TOTAL 0.6 MG/DL (0.2-1.0); CANNABINOIDS URINE NEGATIVE (NEGATIVE); CK-MB VALUE MASS 1.8 NG/ML (<3.6); COCAINE METABOLITE URINE NEGATIVE (NEGATIVE); CPK CREATINE PHOSPHOKINASE 225 U/L (39-308); ETHYL ALCOHOL (ETHANOL) 0.279 % (0.000-0.010); FREE T4 0.91 NG/DL (0.76-1.46); LIPASE 404 U/L (73-393); METHADONE URINE NEGATIVE (NEGATIVE); OPIATES URINE NEGATIVE (NEGATIVE); PHENCYCLIDINE URINE NEGATIVE (NEGATIVE); SALICYLATE LEVEL < 1.7 MG/DL (5.0-30.0); THYROID STIMULATING HORMONE 0.593 uIU/ML (0.358-3.740); TOTAL PROTEIN 7.6 GM/DL (6.4-8.2); TROPONIN I < 0.02 NG/ML (< 0.10)
== END 2020-04-01 16:15 | disposition home or self-care (01) | DRG 775 ==
LOC: M ED 10:08 → M PCU 13:27
PROVIDERS: ADMIT Internal Medicine; ATTEND Family Medicine
DX: F10.239 Alcohol dependence with withdrawal, unspecified (principal); D69.6 Thrombocytopenia, unspecified; I10 Essential (primary) hypertension; F41.9 Anxiety disorder, unspecified; F32.9 Major depressive disorder, single episode, unspecified; F17.200 Nicotine dependence, unspecified, uncomplicated; Z79.899 Other long term (current) drug therapy

== ENCOUNTER 2020-10-20 12:47 | Emergency (ER) | payer OTHER ==
[~2020-10-20] VITALS: Ht 195.6 cm; Wt 124.8 kg
[~2020-10-20 12:47] MED LIST changes: +FLUO20CA22 PO; +FLUO40CA PO; +HYDR-3363 PO; -LISI-538 PO; -LISI-542 PO; +LISI-898 PO; +LISI20TA33 PO; +METO1TAB32 PO; +NALT50TA4 PO; +OMEP-221 PO; +OXAZ10CA3 PO; +PANT40TA29 PO
[2020-10-20] MEDS ORDERED: HYDR-3363 (12:58)
[2020-10-20] MEDS ORDERED: PROP10TA56 (12:58)
[2020-10-20 13:35] LABS: HEMATOCRIT 40.9 % (42.0-52.0); HEMOGLOBIN 13.8 g/dl (13.5-17.5); MEAN CORPUSCULAR HEMOGLOBIN 28.5 pg (27.0-33.0); MEAN CORPUSCULAR HGB CONC 33.7 g/dl (32.0-36.5); MEAN CORPUSCULAR VOLUME 84.5 fl (80.0-96.0); PLATELET COUNT, AUTOMATED 215 10^3/uL (150-450); RED BLOOD COUNT 4.84 10^6/uL (4.30-6.10); WHITE BLOOD COUNT 6.8 10^3/uL (4.0-10.0)
[2020-10-20] MEDS ORDERED: MULTIVITAMIN -ADULT INJECTION 10 ML, THIAMINE INJection 100 MG, FOLIC ACID 1 MG in NS 1... IV ONE (13:35)
[2020-10-20 14:16] LABS: ACETAMINOPHEN LEVEL < 2.0 UG/ML (10.0-30.0); ALBUMIN 3.9 GM/DL (3.2-5.2); ALT/SGPT 35 U/L (12-78); BILIRUBIN,DIRECT < 0.1 MG/DL (0.0-0.2); BILIRUBIN,TOTAL 0.1 MG/DL (0.2-1.0); BLOOD UREA NITROGEN 14 MG/DL (7-18); CALCIUM LEVEL 8.7 MG/DL (8.5-10.1); CARBON DIOXIDE LEVEL 28 MEQ/L (21-32); CHLORIDE LEVEL 107 MEQ/L (98-107); CREATININE FOR GFR 1.05 MG/DL (0.70-1.30); ETHYL ALCOHOL (ETHANOL) 0.309 % (0.000-0.010); GLOMERULAR FILTRATION RATE > 60.0 (>60); GLUCOSE, FASTING 103 MG/DL (70-100); POTASSIUM SERUM 4.2 MEQ/L (3.5-5.1); SALICYLATE LEVEL < 1.7 MG/DL (5.0-30.0); SODIUM LEVEL 141 MEQ/L (136-145); THYROID STIMULATING HORMONE 0.937 uIU/ML (0.358-3.740); TOTAL PROTEIN 7.7 GM/DL (6.4-8.2)
[2020-10-20] MEDS ORDERED: ONDANSETRON 4MG/2ML VIAL IV ONE (14:20)
[2020-10-20 14:31] LABS: MAGNESIUM LEVEL 2.3 MG/DL (1.8-2.4)
[2020-10-20] MEDS ORDERED: OXAZEPAM 10 MG CAP PO ONE (17:10)
[2020-10-20 17:45] LABS: RSV AMPLIFICATION NEGATIVE (NEGATIVE)
[2020-10-20] MEDS ORDERED: LORazepam 2 MG/ML VIAL IV STA (18:20)
[2020-10-20 20:14] LABS: AMPHETAMINES LEVEL URINE NEGATIVE (NEGATIVE); BARBITURATES URINE NEGATIVE (NEGATIVE); BENZODIAZEPINES URINE POSITIVE (NEGATIVE); CANNABINOIDS URINE NEGATIVE (NEGATIVE); COCAINE METABOLITE URINE NEGATIVE (NEGATIVE); METHADONE URINE NEGATIVE (NEGATIVE); OPIATES URINE NEGATIVE (NEGATIVE); PHENCYCLIDINE URINE NEGATIVE (NEGATIVE)
[2020-10-20 20:16] VITALS: BP 130/82
--- NOTE | 2020-10-21 00:27 | ECGEPIP ---
[facility] - ED Test Date: 2020-10-20 Pat Name: KELLY AWAD Department: Room: - Gender: Male International Representative: KIRILL : 1975 Requested By: WAYNE Jennings Order Number: [id number] Reading MD: Kelly Dowling Measurements Intervals [place] Rate: 112 P: 26 CA: 170 QRS: 39 QRSD: 82 T: 33 QT: 316 QTc: 431 Interpretive Statements Sinus tachycardia POSSIBLE INCOMPLETE RIGHT BUNDLE BRANCH BLOCK NO PRIORS FOR COMPARISON Electronically Signed on 10-21-2020 0:27:23 EST by Kelly Dowling
== END 2020-10-20 20:21 | disposition short-term general hospital (02) ==
LOC: M ED 12:47
DX: F10.239 Alcohol dependence with withdrawal, unspecified (principal); R00.0 Tachycardia, unspecified; F33.9 Major depressive disorder, recurrent, unspecified; F41.9 Anxiety disorder, unspecified; F17.200 Nicotine dependence, unspecified, uncomplicated
CPT/HCPCS: 80048; 80076; 80143; 80307; 82077; 83735; 84443; 85027; 87631; 93005; 96365; 96366; 96375; 99284; J2060; J2405; J3411

== ENCOUNTER → 2020-10-26 | Outpatient (REF) | payer OTHER ==
[~2020-10-26] MED LIST changes: +HYDR-3363; +PROP10TA56
[2020-10-26 13:36] LABS: CHOLESTEROL LEVEL 253 MG/DL (<200); CHOLESTEROL RISK RATIO 3.833 (<5); HDL CHOLESTEROL 66 MG/DL (>40); NON-HDL-C 187 MG/DL; TRIGLYCERIDES LEVEL 425 MG/DL (<150)
== END ==
LOC: M SFHCPLAZ 11:27
PROVIDERS: ATTEND Family Medicine
DX: Z13.1 Encounter for screening for diabetes mellitus (principal); Z13.220 Encounter for screening for lipoid disorders

== ENCOUNTER 2020-11-06 13:55 | Outpatient (RCR) | payer MEDICAID | END 2020-11-11 | LOC: M OUTALCOH 13:55 | PROVIDERS: ATTEND Psychiatry & Neurology Psychiatry | DX: F10.20 Alcohol dependence, uncomplicated (principal); Z72.0 Tobacco use ==

== ENCOUNTER → 2020-12-11 | Outpatient (RCR) | payer MEDICAID | LOC: M OUTALCOH 11-16 08:00 | PROVIDERS: ATTEND Psychiatry & Neurology Psychiatry | DX: F10.20 Alcohol dependence, uncomplicated (principal); Z72.0 Tobacco use ==

== ENCOUNTER → 2020-12-25 | Outpatient (CLI) | payer OTHER ==
--- NOTE | 2020-12-28 15:40 | SLEEPCENT ---
NOCTURNAL POLYSOMNOGRAPHY DATE: 12/25/2020 ORDERED BY: ETHAN Cr Nocturnal polysomnography was performed for evaluation of sleep physiology in this patient with a history of excessive somnolence and nonrestorative sleep. 8 hours and 44 minutes of data were reviewed. There were 370 minutes of sleep identified. Sleep latency was prolonged at 91 minutes. REM latency was prolonged at 161 minutes. Sleep architecture showed some fragmentation. There were four REM cycles noted. Overall sleep efficiency was 71%. The electrocardiogram showed a sinus rhythm with an average heart rate of 65 beats per minute. EEG showed minor coarsening in background and otherwise normal waveforms for wake and sleep. There were 285 respiratory events identified of 10 seconds in duration or greater for an apnea-hypopnea index of 46.2. The events were primarily obstructive, 59 mixed apneas were also noted. The respiratory events were not exclusive to sleep stage nor body posture. Arousals from respiratory events occurred 12.6 times per hour and oxygen desaturations were seen into the 70s. There was some minor limb activity. Limb movement arousal index was 1. IMPRESSION: Obstructive sleep apnea syndrome (G47.33), apnea-hypopnea index 46.2. RECOMMENDATION: The patient should be encouraged to return to [facility] for [facility]. In the interim, alcohol and sedative avoidance should be practiced and caution exercised during the operation of motor vehicles.
== END ==
LOC: M SLEEP 20:00
PROVIDERS: ATTEND Nurse Practitioner Family
DX: G47.33 Obstructive sleep apnea (adult) (pediatric) (principal)

== ENCOUNTER → 2020-12-28 | Outpatient (CLI) | payer OTHER | LOC: M PLALAB 10:11 | PROVIDERS: ATTEND Psychiatry & Neurology Psychiatry | DX: F10.20 Alcohol dependence, uncomplicated (principal) ==

== ENCOUNTER 2021-01-06 08:45 | Outpatient (RCR) | payer MEDICAID | END 2021-01-11 | LOC: M OUTALCOH 08:45 | PROVIDERS: ATTEND Psychiatry & Neurology Psychiatry | DX: F10.20 Alcohol dependence, uncomplicated (principal); Z72.0 Tobacco use ==

== ENCOUNTER → 2021-01-17 | Outpatient (CLI) | payer OTHER ==
[~2021-01-17] MED LIST changes: -PROP10TA56; +PROP10TA56 PO
== END ==
LOC: M LABSMTC 10:08
PROVIDERS: ATTEND Anesthesiology
DX: Z20.828 Contact with and (suspected) exposure to other viral communicable diseases (principal); Z11.59 Encounter for screening for other viral diseases

== ENCOUNTER → 2021-01-20 | Outpatient (CLI) | payer OTHER ==
--- NOTE | 2021-01-21 15:26 | SLEEPCENT ---
DATE: 01/20/2021 ORDERED BY: Demi Cardoso Nocturnal polysomnography was performed for the titration of pressure therapy in this patient with obstructive sleep apnea syndrome, apnea-hypopnea index 46.2. For testing, a ResMed F30 medium-size mask was used. There was 4 cm of water pressure applied to the circuit, and the lights were extinguished. There was 7 hours and 33 minutes of data reviewed. There was 321 minutes of sleep identified. Sleep latency was prolonged at 39 minutes. REM latency was normal at 64 minutes. Sleep architecture improved with optimal pressure therapy. There were six REM cycles noted. Overall sleep efficiency 71.6%. The electrocardiogram showed a sinus rhythm with an average heart rate of 60 beats per minute. EEG showed normal waveforms for wake and sleep. Respiratory events were best palliated with continuous positive airway pressure (CPAP) at a pressure of +9. Significant activity persisted in the limb leads. Limb movement arousal index on this occasion was 10.7. IMPRESSION: Obstructive sleep apnea syndrome (G47.33). RECOMMENDATION: Nightly use of pressure therapy, 9 cm of water.
== END ==
LOC: M SLEEP 20:00
PROVIDERS: ATTEND Nurse Practitioner Family
DX: G47.33 Obstructive sleep apnea (adult) (pediatric) (principal)

== ENCOUNTER 2021-01-22 12:43 | Day surgery (SDC) | payer OTHER ==
[~2021-01-22] VITALS: Ht 195.6 cm; Wt 119.3 kg
[~2021-01-22 12:43] MED LIST changes: +NS 1,000 ML IV ONE
[2021-01-22] MEDS ORDERED: fentaNYL 100 MCG/2 ML INJECTION (J3010) As Ordered ONE (14:09)
[2021-01-22] MEDS ORDERED: propofoL 200 MG/20 ML VIAL As Ordered ONE (14:32)
[2021-01-22] MEDS ORDERED: LIDOCAINE 2% 100MG/5ML SDV (FOR ANES.) As Ordered ONE (14:32)
--- NOTE | 2021-01-22 14:53 | ROOR ---
Patient Name: Renny Montero Procedure Date: 01/22/2021 2:06 PM Date of : 1975 Age: 45 Room: [facility] Gender: Male Note Status: Finalized Procedure: Upper GI endoscopy Indications: Heartburn Providers: Daniel Luna MD Referring MD: Kadeem Cochran Requesting Provider: Medicines: Monitored Anesthesia Care Complications: No immediate complications. Procedure: Pre-Anesthesia Assessment: - Prior to the procedure, a History and Physical was performed, and patient medications and allergies were reviewed. The patient is competent. The risks and benefits of the procedure and the sedation options and risks were discussed with the patient. All questions were answered and informed consent was obtained. Patient identification and proposed procedure were verified by the physician, the nurse and the anesthesiologist in the procedure room. Mental Status Examination: alert and oriented. Airway Examination: normal oropharyngeal airway and neck mobility. Respiratory Examination: clear to auscultation. CV Examination: normal. Prophylactic Antibiotics: The patient does not require prophylactic antibiotics. Prior Anticoagulants: The patient has taken no previous anticoagulant or antiplatelet agents. ASA Grade Assessment: II - A patient with mild systemic disease. After reviewing the risks and benefits, the patient was deemed in satisfactory condition to undergo the procedure. The anesthesia plan was to use monitored anesthesia care (MAC). Immediately prior to administration of medications, the patient was re-assessed for adequacy to receive sedatives. The heart rate, respiratory rate, oxygen saturations, blood pressure, adequacy of pulmonary ventilation, and response to care were monitored throughout the procedure. The physical status of the patient was re-assessed after the procedure. The Endoscope was introduced through the mouth, and advanced to the second part of duodenum. The upper GI endoscopy was accomplished without difficulty. The patient tolerated the procedure well. Findings: LA Grade B (one or more mucosal breaks greater than 5 mm, not extending between the tops of two mucosal folds) esophagitis with no bleeding was found in the distal esophagus. Biopsies were taken with a cold forceps for histology. Verification of patient identification for the specimen was done by the physician and nurse using the patient's name, date and medical record number. Estimated blood loss was minimal. The Z-line was irregular and was found 38 cm from the incisors. Scattered moderate inflammation characterized by erythema, friability and granularity was found in the gastric antrum. Biopsies were taken with a cold forceps for Helicobacter pylori testing. The duodenal bulb and second portion of the duodenum were normal. Impression: - LA Grade B reflux esophagitis. Rule out Smith's esophagus. Biopsied. - Z-line irregular, 38 cm from the incisors. - Gastritis. Biopsied. - Normal duodenal bulb and second portion of the duodenum. Recommendation: - Patient has a contact number available for emergencies. The signs and symptoms of potential delayed complications were discussed with the patient. Return to normal activities tomorrow. Written discharge instructions were provided to the patient. - High fiber diet. - Continue present medications. - Await pathology results. - Follow an antireflux regimen. - Repeat upper endoscopy in 3 years per protocol and for surveillance based on pathology results. - Telephone GI clinic for pathology results in 2 weeks. - Return to primary care physician. Procedure Code(s): --- Professional --- 02599, Esophagogastroduodenoscopy, flexible, transoral; with biopsy, single or multiple Diagnosis Code(s): --- Professional --- K21.0, Gastro-esophageal reflux disease with esophagitis K22.8, Other specified diseases of esophagus K29.70, Gastritis, unspecified, without bleeding R12, Heartburn CPT copyright 2019 [employer]. All rights reserved. The codes documented in this report are preliminary and upon clinical admissions manager review may be revised to meet current compliance requirements. Daniel Luna MD Daniel Luna MD 01/22/2021 2:52:43 PM Electronically signed by Daniel Luna MD Number of Addenda: 0 Note Initiated On: 01/22/2021 2:06 PM Estimated Blood Loss: Estimated blood loss was minimal.
[2021-01-22 14:56] VITALS: BP 121/85
== END 2021-01-22 14:57 | disposition home or self-care (01) ==
LOC: M OPP 12:43
PROVIDERS: ATTEND Internal Medicine Gastroenterology
DX: K21.00 Gastro-esophageal reflux disease with esophagitis, without bleeding (principal); K22.8 Other specified diseases of esophagus; K29.90 Gastroduodenitis, unspecified, without bleeding; R12 Heartburn; F17.210 Nicotine dependence, cigarettes, uncomplicated; Z79.899 Other long term (current) drug therapy
CPT/HCPCS: 43239; 88305; J3010

== ENCOUNTER → 2021-02-10 | Outpatient (RCR) | payer MEDICAID ==
[~2021-02-10] MED LIST changes: -NS 1,000 ML IV ONE; +OMEP40CA4 PO; -OMEP40CA97 PO
== END ==
LOC: M OUTALCOH 01-18 14:56
PROVIDERS: ATTEND Psychiatry & Neurology Psychiatry
DX: F10.20 Alcohol dependence, uncomplicated (principal); Z72.0 Tobacco use

== ENCOUNTER → 2021-02-22 | Outpatient (REF) | payer OTHER | LOC: M SFHCPLAZ 09:10 | PROVIDERS: ATTEND Family Medicine | DX: M25.641 Stiffness of right hand, not elsewhere classified (principal); I10 Essential (primary) hypertension ==

== ENCOUNTER → 2021-02-23 | Outpatient (CLI) | payer OTHER ==
[~2021-02-23] MED LIST changes: -LISI-898 PO; +LISI5TAB11 PO; -OMEP-221 PO; +OMEP40CA5 PO
[2021-02-23 14:41] LABS: BLOOD UREA NITROGEN 14 MG/DL (7-18); CALCIUM LEVEL 9.7 MG/DL (8.5-10.1); CARBON DIOXIDE LEVEL 24 MEQ/L (21-32); CHLORIDE LEVEL 106 MEQ/L (98-107); CREATININE FOR GFR 0.82 MG/DL (0.70-1.30); GLOMERULAR FILTRATION RATE > 60.0 (>60); GLUCOSE, FASTING 111 MG/DL (70-100); POTASSIUM SERUM 4.9 MEQ/L (3.5-5.1); RHEUMATOID FACTOR QUANT < 10.0 IU/ML (<15.0); SODIUM LEVEL 138 MEQ/L (136-145)
[2021-02-24 23:10] LABS: ANA (HEP2) Negative (.)
== END ==
LOC: M PLAIMG 10:35 → M PLALAB 10:35
PROVIDERS: ATTEND Family Medicine
DX: M25.641 Stiffness of right hand, not elsewhere classified (principal)

== ENCOUNTER 2021-03-11 09:00 | Outpatient (RCR) | payer MEDICAID ==
[~2021-03-11 09:00] MED LIST changes: +LISI-898 PO; -LISI5TAB11 PO; +OMEP-221 PO; -OMEP40CA5 PO
== END 2021-03-13 ==
LOC: M OUTALCOH 09:00
PROVIDERS: ATTEND Psychiatry & Neurology Psychiatry
DX: F10.20 Alcohol dependence, uncomplicated (principal); Z72.0 Tobacco use

== ENCOUNTER 2021-04-08 08:00 | Outpatient (RCR) | payer MEDICAID | END 2021-04-13 | LOC: M OUTALCOH 08:00 | PROVIDERS: ATTEND Psychiatry & Neurology Psychiatry | DX: F10.20 Alcohol dependence, uncomplicated (principal); Z72.0 Tobacco use ==

== ENCOUNTER 2021-05-12 13:59 | Outpatient (RCR) | payer MEDICAID | END 2021-05-13 | LOC: M OUTALCOH 13:59 | PROVIDERS: ATTEND Psychiatry & Neurology Psychiatry | DX: F10.20 Alcohol dependence, uncomplicated (principal); Z72.0 Tobacco use ==

== ENCOUNTER 2021-06-01 08:00 | Outpatient (RCR) | payer MEDICAID | END 2021-06-13 | LOC: M OUTALCOH 08:00 | PROVIDERS: ATTEND Psychiatry & Neurology Psychiatry | DX: F10.20 Alcohol dependence, uncomplicated (principal); Z72.0 Tobacco use ==

== ENCOUNTER → 2021-07-13 | Outpatient (RCR) | payer MEDICAID ==
[~2021-07-13] MED LIST changes: -LISI-898 PO; +LISI5TAB11 PO; -OMEP-221 PO; +OMEP40CA5 PO
== END ==
LOC: M OUTALCOH 06-16 11:30
PROVIDERS: ATTEND Psychiatry & Neurology Psychiatry
DX: F10.20 Alcohol dependence, uncomplicated (principal); Z72.0 Tobacco use

== ENCOUNTER 2021-08-10 07:59 | Outpatient (RCR) | payer MEDICAID ==
[~2021-08-10 07:59] MED LIST changes: +LISI-898 PO; -LISI5TAB11 PO; +OMEP-221 PO; -OMEP40CA5 PO
== END 2021-08-13 ==
LOC: M OUTALCOH 07:59
PROVIDERS: ATTEND Psychiatry & Neurology Psychiatry
DX: F10.20 Alcohol dependence, uncomplicated (principal); Z72.0 Tobacco use

== ENCOUNTER 2021-08-25 12:00 | Outpatient (RCR) | payer MEDICAID ==
[~2021-08-25 12:00] MED LIST changes: -LISI-898 PO; +LISI5TAB11 PO; -OMEP-221 PO; +OMEP40CA5 PO
== END 2021-09-13 ==
LOC: M OUTALCOH 12:00
PROVIDERS: ATTEND Psychiatry & Neurology Psychiatry
DX: F10.20 Alcohol dependence, uncomplicated (principal); Z72.0 Tobacco use

== ENCOUNTER 2021-09-23 15:49 | Outpatient (RCR) | payer MEDICAID | END 2021-10-11 | LOC: M OUTALCOH 15:49 | PROVIDERS: ATTEND Psychiatry & Neurology Psychiatry | DX: F10.20 Alcohol dependence, uncomplicated (principal) ==

== ENCOUNTER → 2021-09-29 | Outpatient (CLI) | payer OTHER | LOC: M PLALAB 13:01 | PROVIDERS: ATTEND Family Medicine | DX: M54.42 Lumbago with sciatica, left side (principal) ==

== ENCOUNTER → 2021-10-11 | Outpatient (RCR) | payer OTHER | LOC: M PT 10-04 12:37 | PROVIDERS: ATTEND Family Medicine | DX: M54.42 Lumbago with sciatica, left side (principal) ==

== ENCOUNTER → 2021-11-10 | Outpatient (CLI) | payer OTHER, MEDICAID ==
[2021-11-10 15:43] LABS: ALBUMIN 3.6 GM/DL (3.2-5.2); ALT/SGPT 17 U/L (12-78); BILIRUBIN,TOTAL 0.3 MG/DL (0.2-1.0); BLOOD UREA NITROGEN 20 MG/DL (7-18); CALCIUM LEVEL 9.1 MG/DL (8.5-10.1); CARBON DIOXIDE LEVEL 31 MEQ/L (21-32); CHLORIDE LEVEL 106 MEQ/L (98-107); CREATININE FOR GFR 1.19 MG/DL (0.70-1.30); GLOMERULAR FILTRATION RATE > 60.0 (>60); GLUCOSE, FASTING 92 MG/DL (70-100); POTASSIUM SERUM 5.5 MEQ/L (3.5-5.1); SODIUM LEVEL 138 MEQ/L (136-145); TOTAL PROTEIN 7.2 GM/DL (6.4-8.2)
== END ==
LOC: M PLALAB 13:56
PROVIDERS: ATTEND Family Medicine
DX: F10.11 Alcohol abuse, in remission (principal)

== ENCOUNTER → 2021-11-11 | Outpatient (RCR) | payer MEDICAID | LOC: M OUTALCOH 15:43 | PROVIDERS: ATTEND Psychiatry & Neurology Psychiatry | DX: F10.20 Alcohol dependence, uncomplicated (principal) ==

== ENCOUNTER → 2022-02-18 | Outpatient (CLI) | payer MEDICAID, OTHER ==
[2022-02-18 14:09] LABS: ALBUMIN 3.8 GM/DL (3.2-5.2); ALT/SGPT 40 U/L (12-78); BILIRUBIN,TOTAL 0.8 MG/DL (0.2-1.0); BLOOD UREA NITROGEN 17 MG/DL (7-18); CALCIUM LEVEL 9.1 MG/DL (8.5-10.1); CARBON DIOXIDE LEVEL 28 MEQ/L (21-32); CHLORIDE LEVEL 104 MEQ/L (98-107); CHOLESTEROL LEVEL 245 MG/DL (<200); CHOLESTEROL RISK RATIO 3.356 (<5); CREATININE FOR GFR 1.12 MG/DL (0.70-1.30); GLOMERULAR FILTRATION RATE > 60.0 (>60); GLUCOSE, FASTING 93 MG/DL (70-100); HDL CHOLESTEROL 73 MG/DL (>40); LDL CHOLESTEROL 132 MG/DL (<100); NON-HDL-C 172 MG/DL; POTASSIUM SERUM 4.7 MEQ/L (3.5-5.1); SODIUM LEVEL 137 MEQ/L (136-145); TOTAL PROTEIN 7.4 GM/DL (6.4-8.2); TRIGLYCERIDES LEVEL 201 MG/DL (<150)
[2022-02-18 14:24] LABS: HEMOGLOBIN A1c 5.3 %
== END ==
LOC: M PLALAB 11:30
PROVIDERS: ATTEND Student in an Organized Health Care Education/Training Program
DX: Z13.220 Encounter for screening for lipoid disorders (principal); Z13.1 Encounter for screening for diabetes mellitus

== ENCOUNTER → 2022-09-15 | Outpatient (REF) | payer OTHER ==
[2022-09-15 14:07] LABS: BASO % 0.6 % (0.0-1.0); EOS # 0.3 10^3/uL (0.0-0.5); EOS % 6.3 % (0.0-3.0); HEMOGLOBIN 14.4 g/dl (13.5-17.5); LYMPH # 2.2 10^3/uL (1.5-5.0); LYMPH % 45.8 % (24.0-44.0); MEAN CORPUSCULAR HGB CONC 33.5 g/dl (32.0-36.5); MEAN CORPUSCULAR VOLUME 101.4 fl (80.0-96.0); MONO # 0.5 10^3/uL (0.0-0.8); MONO % 10.5 % (2.0-8.0); NEUTROPHILS # 1.8 10^3/uL (1.5-8.5); NEUTROPHILS % 36.6 % (36.0-66.0); PLATELET COUNT, AUTOMATED 158 10^3/uL (150-450); RED BLOOD COUNT 4.24 10^6/uL (4.30-6.10); WHITE BLOOD COUNT 4.8 10^3/uL (4.0-10.0)
[2022-09-15 14:57] LABS: THYROID STIMULATING HORMONE 0.841 uIU/ML (0.55-4.78)
[2022-09-16 00:10] LABS: ALKALINE PHOSPHATASE 60 U/L (46-116); ALT/SGPT 84 U/L (7.0-40); AST/SGOT 66 U/L (<34); BILIRUBIN,TOTAL 0.4 MG/DL (0.3-1.2); BLOOD UREA NITROGEN 14 MG/DL (9-23); CALCIUM LEVEL 9.2 MG/DL (8.5-10.1); CARBON DIOXIDE LEVEL 26 MMOL/L (20-31); CHLORIDE LEVEL 102 MMOL/L (98-107); CHOLESTEROL LEVEL 226 MG/DL (<200); CHOLESTEROL RISK RATIO 2.88 (<5); CREATININE FOR GFR 1.11 MG/DL (0.70-1.30); GLOMERULAR FILTRATION RATE > 60.0 (>60); GLUCOSE, FASTING 111 MG/DL (60-100); HDL CHOLESTEROL 78.3 MG/DL (>40); LDL CHOLESTEROL 125.5 MG/DL (<100); NON-HDL-C 148 MG/DL; SODIUM LEVEL 138 MMOL/L (136-145); TOTAL PROTEIN 7.4 G/DL (5.7-8.2); TRIGLYCERIDES LEVEL 111 MG/DL (<150)
== END ==
LOC: M LAB REF 13:17
PROVIDERS: ATTEND Family Medicine Addiction Medicine
DX: I10 Essential (primary) hypertension (principal)

== ENCOUNTER → 2023-06-05 | Outpatient (REF) | payer OTHER ==
[2023-06-06 03:59] LABS: BLOOD UREA NITROGEN 13 MG/DL (9-23); CALCIUM LEVEL 9.4 MG/DL (8.5-10.1); CARBON DIOXIDE LEVEL 28 MMOL/L (20-31); CHLORIDE LEVEL 103 MMOL/L (98-107); CHOLESTEROL LEVEL 247 MG/DL (<200); CHOLESTEROL RISK RATIO 3.22 (<5); CREATININE FOR GFR 0.96 MG/DL (0.70-1.30); GLOMERULAR FILTRATION RATE > 60.0 (>60); GLUCOSE, FASTING 118 MG/DL (60-100); HDL CHOLESTEROL 76.5 MG/DL (>40); LDL CHOLESTEROL 142.9 MG/DL (<100); NON-HDL-C 170.5 MG/DL; POTASSIUM SERUM 4.9 MMOL/L (3.5-5.1); SODIUM LEVEL 138 MMOL/L (136-145); THYROID STIMULATING HORMONE 1.243 uIU/ML (0.55-4.78); TRIGLYCERIDES LEVEL 138 MG/DL (<150)
== END ==
LOC: M LAB REF 16:33
PROVIDERS: ATTEND Family Medicine Addiction Medicine
DX: E78.5 Hyperlipidemia, unspecified (principal)

== ENCOUNTER → 2023-09-04 | Outpatient (REF) | payer OTHER ==
[2023-09-04 13:01] LABS: ALBUMIN 3.9 G/DL (3.2-5.2); ALKALINE PHOSPHATASE 86 U/L (46-116); ALT/SGPT 101 U/L (7.0-40); AST/SGOT 74 U/L (<34); BILIRUBIN,TOTAL 0.5 MG/DL (0.3-1.2); BLOOD UREA NITROGEN 14 MG/DL (9-23); CALCIUM LEVEL 9.6 MG/DL (8.5-10.1); CARBON DIOXIDE LEVEL 27 MMOL/L (20-31); CHLORIDE LEVEL 107 MMOL/L (98-107); CHOLESTEROL LEVEL 306 MG/DL (<200); GLOMERULAR FILTRATION RATE > 60.0 (>60); GLUCOSE, FASTING 125 MG/DL (60-100); HDL CHOLESTEROL 67.9 MG/DL (>40); NON-HDL-C 238.1 MG/DL; POTASSIUM SERUM 5.3 MMOL/L (3.5-5.1); SODIUM LEVEL 138 MMOL/L (136-145); TOTAL PROTEIN 7.6 G/DL (5.7-8.2); TRIGLYCERIDES LEVEL 453 MG/DL (<150)
[2023-09-04 13:03] LABS: THYROID STIMULATING HORMONE 1.344 uIU/ML (0.55-4.78)
[2023-09-04 13:38] LABS: HEMOGLOBIN A1c 5.9 % (4.0-6.0)
== END ==
LOC: M LAB REF 11:53
PROVIDERS: ATTEND Family Medicine Addiction Medicine
DX: I10 Essential (primary) hypertension (principal)

== ENCOUNTER → 2023-12-19 | Outpatient (REF) | payer OTHER ==
[~2023-12-19] MED LIST changes: +BUPR-597; -BUPR300T92
[2023-12-19 15:20] LABS: THYROID STIMULATING HORMONE 2.119 uIU/ML (0.55-4.78)
[2023-12-19 15:22] LABS: ALBUMIN 3.5 G/DL (3.2-5.2); ALKALINE PHOSPHATASE 89 U/L (46-116); ALT/SGPT 106 U/L (7.0-40); AST/SGOT 92 U/L (<34); BILIRUBIN,TOTAL 0.3 MG/DL (0.3-1.2); BLOOD UREA NITROGEN 14 MG/DL (9-23); CALCIUM LEVEL 9.1 MG/DL (8.5-10.1); CARBON DIOXIDE LEVEL 23 MMOL/L (20-31); CHLORIDE LEVEL 105 MMOL/L (98-107); CHOLESTEROL LEVEL 279 MG/DL (<200); CHOLESTEROL RISK RATIO 4.75 (<5); CREATININE FOR GFR 0.87 MG/DL (0.70-1.30); GLOMERULAR FILTRATION RATE > 60.0 (>60); GLUCOSE, FASTING 124 MG/DL (60-100); HDL CHOLESTEROL 58.7 MG/DL (>40); NON-HDL-C 220.3 MG/DL; SODIUM LEVEL 137 MMOL/L (136-145); TOTAL PROTEIN 7.3 G/DL (5.7-8.2); TRIGLYCERIDES LEVEL 649 MG/DL (<150)
== END ==
LOC: M LAB REF 12:55
PROVIDERS: ATTEND Family Medicine Addiction Medicine
DX: I10 Essential (primary) hypertension (principal)

== ENCOUNTER → 2024-02-29 | Outpatient (CLI) | payer OTHER ==
[~2024-02-29] MED LIST changes: +FLUO-365; +FLUO-365 PO; -FLUO20CA22; -FLUO20CA22 PO
== END ==
LOC: M WUC 09:44
PROVIDERS: ATTEND Family Medicine Addiction Medicine
DX: M54.2 Cervicalgia (principal)

== ENCOUNTER 2024-04-03 08:27 | Day surgery (SDC) | payer OTHER ==
[~2024-04-03] VITALS: Ht 198.1 cm; Wt 112.0 kg
[~2024-04-03 08:27] MED LIST changes: +B-1100TA2 PO; -HYDR-3363; +LISI20TA37 PO; +METO1TAB7 PO; +NS 1,000 ML IV ONE; +ROSU10TA61 PO; +VASC1CAP2 PO
[2024-04-03] MEDS ORDERED: propofoL 200 MG/20 ML VIAL As Ordered ONE (09:59)
[2024-04-03] MEDS ORDERED: LIDOCAINE 2% 100MG/5ML SDV (FOR ANES.) As Ordered ONE (09:59)
[2024-04-03 10:40] VITALS: TEMP 98.3
[2024-04-03 10:55] VITALS: BP 101/56; O2SAT 97
== END 2024-04-03 11:06 | disposition home or self-care (01) ==
LOC: M OPP 08:27
PROVIDERS: ATTEND Surgery
DX: Z12.11 Encounter for screening for malignant neoplasm of colon (principal); D12.6 Benign neoplasm of colon, unspecified; K64.9 Unspecified hemorrhoids; F17.210 Nicotine dependence, cigarettes, uncomplicated; G47.30 Sleep apnea, unspecified; Z99.89 Dependence on other enabling machines and devices; Z79.899 Other long term (current) drug therapy

== ENCOUNTER → 2024-05-18 | Outpatient (CLI) | payer OTHER ==
[~2024-05-18] MED LIST changes: -NS 1,000 ML IV ONE
== END ==
LOC: M RAD 08:12
PROVIDERS: ATTEND Physician Assistant
DX: R20.2 Paresthesia of skin (principal)

== ENCOUNTER → 2024-08-09 | Outpatient (REF) | payer OTHER ==
[~2024-08-09] MED LIST changes: -CYCL5TAB PO; +CYCL5TAB4 PO
[2024-08-09 13:17] LABS: ALBUMIN 4.1 G/DL (3.2-5.2); ALKALINE PHOSPHATASE 82 U/L (40-129); ALT/SGPT 35 U/L (7.0-40); AST/SGOT 22 U/L (<34); BILIRUBIN,TOTAL 0.5 MG/DL (0.3-1.2); BLOOD UREA NITROGEN 23 MG/DL (9-23); CALCIUM LEVEL 10.6 MG/DL (8.5-10.1); CARBON DIOXIDE LEVEL 27 MMOL/L (20-31); CHLORIDE LEVEL 103 MMOL/L (98-107); CHOLESTEROL LEVEL 284 MG/DL (<200); CHOLESTEROL RISK RATIO 3.89 (<5); GLOMERULAR FILTRATION RATE > 60.0 (>56); GLUCOSE, FASTING 139 MG/DL (60-100); HDL CHOLESTEROL 72.9 MG/DL (>40); LDL CHOLESTEROL 176.5 MG/DL (<100); NON-HDL-C 211.1 MG/DL; SODIUM LEVEL 139 MMOL/L (136-145); TOTAL PROTEIN 7.8 G/DL (5.7-8.2); TRIGLYCERIDES LEVEL 173 MG/DL (<150)
[2024-08-09 13:18] LABS: THYROID STIMULATING HORMONE 1.278 uIU/ML (0.55-4.78)
== END ==
LOC: M LAB REF 12:00
PROVIDERS: ATTEND Family Medicine Addiction Medicine
DX: I10 Essential (primary) hypertension (principal)

== ENCOUNTER 2024-09-17 16:55 | Inpatient (IN) | payer OTHER ==
[~2024-09-17] VITALS: Ht 193 cm; Wt 108.9 kg
[2024-09-17] MEDS: LORazepam 2 MG TAB PO PRN (17:52)
[2024-09-17] MEDS: FOLIC ACID 1MG TAB PO SCH (17:52)
[2024-09-17] MEDS: MULTIVITAMINS/MINERALS THERAP 1 TAB PO SCH (17:52)
[2024-09-17 17:57] LABS: BASO # 0.1 10^3/uL (0.0-0.2); BASO % 1.4 % (0.0-1.0); EOS % 1.1 % (0.0-3.0); HEMATOCRIT 46.2 % (42.0-52.0); HEMOGLOBIN 16.4 g/dl (13.5-17.5); LYMPH % 53.4 % (24.0-44.0); MEAN CORPUSCULAR HEMOGLOBIN 33.7 pg (27.0-33.0); MEAN CORPUSCULAR HGB CONC 35.5 g/dl (32.0-36.5); MEAN CORPUSCULAR VOLUME 95.1 fl (80.0-96.0); MONO # 0.3 10^3/uL (0.0-0.8); MONO % 8.1 % (2.0-8.0); NEUTROPHILS # 1.3 10^3/uL (1.5-8.5); NEUTROPHILS % 35.7 % (36.0-66.0); PLATELET COUNT, AUTOMATED 168 10^3/uL (150-450); RED BLOOD COUNT 4.86 10^6/uL (4.30-6.10); WHITE BLOOD COUNT 3.7 10^3/uL (4.0-10.0)
[2024-09-17] MEDS: LORazepam 2 MG/ML 1ML VIAL IV STA ×2 (18:10→19:29)
[2024-09-17 18:21] LABS: SALICYLATE LEVEL < 3.0 MG/DL (<30)
[2024-09-17 18:30] LABS: ALKALINE PHOSPHATASE 100 U/L (40-129); ALT/SGPT 90 U/L (7.0-40); AMPHETAMINES LEVEL URINE NEGATIVE (NEGATIVE); AST/SGOT 129 U/L (<34); BARBITURATES URINE NEGATIVE (NEGATIVE); BENZODIAZEPINES URINE NEGATIVE (NEGATIVE); BILIRUBIN,DIRECT 0.3 MG/DL (<0.4); BILIRUBIN,TOTAL 0.7 MG/DL (0.3-1.2); BLOOD UREA NITROGEN 20 MG/DL (9-23); CALCIUM LEVEL 8.5 MG/DL (8.5-10.1); CANNABINOIDS URINE NEGATIVE (NEGATIVE); CARBON DIOXIDE LEVEL 22 MMOL/L (20-31); CHLORIDE LEVEL 102 MMOL/L (98-107); COCAINE METABOLITE URINE NEGATIVE (NEGATIVE); CPK CREATINE PHOSPHOKINASE 130 U/L (46-171); CREATININE FOR GFR 0.86 MG/DL (0.70-1.30); ETHYL ALCOHOL (ETHANOL) 0.375 % (0.000-0.010); GLOMERULAR FILTRATION RATE > 60.0 (>56); GLUCOSE, FASTING 88 MG/DL (60-100); MAGNESIUM LEVEL 2.4 MG/DL (1.8-2.4); METHADONE URINE NEGATIVE (NEGATIVE); OPIATES URINE NEGATIVE (NEGATIVE); PHENCYCLIDINE URINE NEGATIVE (NEGATIVE); POTASSIUM SERUM 4.5 MMOL/L (3.5-5.1); SODIUM LEVEL 142 MMOL/L (136-145); THYROID STIMULATING HORMONE 1.977 uIU/ML (0.55-4.78); TOTAL PROTEIN 7.9 G/DL (5.7-8.2)
[2024-09-17] MEDS: THIAMINE 100 MG TAB PO SCH (19:28)
[2024-09-17] MEDS: LR 1,000 ML IV ONE (21:50)
[2024-09-17] MEDS ORDERED: MAALOX 30 ML SUSP *UDC PO PRN (21:55)
[2024-09-17] MEDS ORDERED: MOM 30ML SUSPENSION UDC PO PRN (21:55)
[2024-09-17] MEDS ORDERED: MED REC IN PROGRESS XX SCH (22:15)
[2024-09-18] VITALS (15 sets, daily range): BP systolic 118–166; BP diastolic 70–102; TEMP 97.4–99.4; O2SAT 93–97
[2024-09-18] MEDS: LORazepam 2 MG TAB PO PRN (01:22)
[2024-09-18] MEDS: GABAPENTIN 100 MG CAP PO SCH (05:31)
[2024-09-18] MEDS: LORazepam 2 MG/ML 1ML VIAL IV STA ×2 (05:31→21:43)
[2024-09-18 06:51] LABS: HEMATOCRIT 42.1 % (42.0-52.0); HEMOGLOBIN 14.7 g/dl (13.5-17.5); MEAN CORPUSCULAR HGB CONC 34.9 g/dl (32.0-36.5); MEAN CORPUSCULAR VOLUME 94.4 fl (80.0-96.0); PLATELET COUNT, AUTOMATED 131 10^3/uL (150-450); RED BLOOD COUNT 4.46 10^6/uL (4.30-6.10)
[2024-09-18 07:16] LABS: BLOOD UREA NITROGEN 20 MG/DL (9-23); CALCIUM LEVEL 8.8 MG/DL (8.5-10.1); CARBON DIOXIDE LEVEL 27 MMOL/L (20-31); CHLORIDE LEVEL 100 MMOL/L (98-107); CREATININE FOR GFR 0.78 MG/DL (0.70-1.30); GLOMERULAR FILTRATION RATE > 60.0 (>56); GLUCOSE, FASTING 138 MG/DL (60-100); MAGNESIUM LEVEL 1.9 MG/DL (1.8-2.4); POTASSIUM SERUM 4.2 MMOL/L (3.5-5.1); SODIUM LEVEL 138 MMOL/L (136-145)
[2024-09-18 07:27] LABS: PROCALCITONIN 0.18 ng/ml
[2024-09-18] MEDS: PANTOPRAZOLE 40MG VIAL IV SCH (08:04)
[2024-09-18] MEDS: ACETAMINOPHEN 325 MG TAB PO PRN (08:06)
[2024-09-18] MEDS: DOCUSATE SODIUM 100MG CAPSULE PO SCH (08:06)
[2024-09-18] MEDS: MULTIVITAMINS/MINERALS THERAP 1 TAB PO SCH (08:06)
[2024-09-18] MEDS: OXAZEPAM 10MG CAP PO SCH (08:06)
[2024-09-18] MEDS: CYANOCOBALAMIN 1,000MCG/ML 1ML VIAL IM SCH (08:06)
[2024-09-18] MEDS: THIAMINE 200MG 2ML VIAL IV SCH (08:37)
[2024-09-18] MEDS ORDERED: ONDANSETRON 4MG 2ML VIAL IV PRN (09:20)
[2024-09-18] MEDS ORDERED: HOME MED LIST COMPLETE! XX SCH (09:55)
[2024-09-18] MEDS: FOLIC ACID 1 MG in NS 50 ML IV SCH (11:42)
[2024-09-18] MEDS: OXAZEPAM 15MG CAP PO SCH (13:08)
[2024-09-18] MEDS: OMEPRAZOLE 20MG CAP PO SCH (13:09)
[2024-09-18] MEDS: ENOXAPARIN 40MG/0.4ML SYRINGE (J1650 PER 10MG) SC SCH (13:11)
[2024-09-18] MEDS ORDERED: hydrALAZINE 20MG/ML 1ML VIAL IV PRN (17:35)
[2024-09-18] MEDS: NICOTINE 21MG/24HR 1 EA TRANSDERMAL TD SCH (17:37)
[2024-09-18] MEDS ORDERED: RIVAROXABAN 10MG TAB (XARELTO) PO SCH (18:00)
[2024-09-19 00:12] VITALS: BP 155/92; TEMP 97; O2SAT 97
[2024-09-19 00:23] VITALS: BP 155/92
[2024-09-19] MEDS ORDERED: FOLIC ACID 1MG TAB PO SCH (09:00)
== END 2024-09-19 03:15 | disposition left against medical advice (07) | DRG 770 ==
LOC: M ED 16:55 → M ED INP 21:55 → M PCU 09-18 03:00
PROVIDERS: ADMIT Student in an Organized Health Care Education/Training Program; ATTEND Internal Medicine
DX: F10.939 Alcohol use, unspecified with withdrawal, unspecified (principal); I10 Essential (primary) hypertension; K21.9 Gastro-esophageal reflux disease without esophagitis; F17.210 Nicotine dependence, cigarettes, uncomplicated; Z79.899 Other long term (current) drug therapy

== ENCOUNTER 2025-04-29 01:44 | Emergency (ER) | payer MEDICAID ==
[~2025-04-29] VITALS: Ht 193 cm; Wt 120.5 kg
[~2025-04-29 01:44] MED LIST changes: -BUPR-597; +BUPR-766
[2025-04-29] MEDS ORDERED: ONDANSETRON 4MG 2ML VIAL As Ordered ONE (01:51)
[2025-04-29 03:49] LABS: BASO # 0.0 10^3/uL (0.0-0.2); BASO % 0.7 % (0.0-1.0); EOS # 0.1 10^3/uL (0.0-0.5); EOS % 1.1 % (0.0-3.0); LYMPH # 2.6 10^3/uL (1.5-5.0); LYMPH % 43.1 % (24.0-44.0); MONO # 0.4 10^3/uL (0.0-0.8); MONO % 6.0 % (2.0-8.0); NEUTROPHILS # 3.0 10^3/uL (1.5-8.5); NEUTROPHILS % 48.9 % (36.0-66.0); PLATELET COUNT, AUTOMATED 199 10^3/uL (150-450)
[2025-04-29] MEDS: THIAMINE 100 MG TAB PO SCH (03:52)
[2025-04-29 04:27] LABS: SALICYLATE LEVEL < 3.0 MG/DL (<30)
[2025-04-29 04:42] LABS: ALT/SGPT 363 U/L (7.0-40); AST/SGOT 334 U/L (<34); CALCIUM LEVEL 7.9 MG/DL (8.5-10.1); CARBON DIOXIDE LEVEL 16 MMOL/L (20-31); CHLORIDE LEVEL 106 MMOL/L (98-107); CREATININE FOR GFR 1.64 MG/DL (0.70-1.30); ETHYL ALCOHOL (ETHANOL) 0.016 % (0.000-0.010); GLOMERULAR FILTRATION RATE 50.3 (>56); MAGNESIUM LEVEL 1.9 MG/DL (1.8-2.4); POTASSIUM SERUM 4.9 MMOL/L (3.5-5.1); SODIUM LEVEL 138 MMOL/L (136-145)
[2025-04-29 04:46] LABS: METHADONE URINE NEGATIVE (NEGATIVE); OPIATES URINE NEGATIVE (NEGATIVE); PHENCYCLIDINE URINE NEGATIVE (NEGATIVE)
[2025-04-29 04:47] LABS: AMPHETAMINES LEVEL URINE NEGATIVE (NEGATIVE); BARBITURATES URINE NEGATIVE (NEGATIVE); CANNABINOIDS URINE NEGATIVE (NEGATIVE); COCAINE METABOLITE URINE NEGATIVE (NEGATIVE)
[2025-04-29 04:52] LABS: BENZODIAZEPINES URINE POSITIVE (NEGATIVE)
[2025-04-29] MEDS: MULTIVITAMINS/MINERALS THERAP 1 TAB PO SCH (08:58)
[2025-04-29] MEDS: FOLIC ACID 1 MG TAB PO SCH (08:58)
[2025-04-29] MEDS: OXAZEPAM 15MG CAP PO ONE (09:25)
[2025-04-29 10:30] VITALS: BP 125/86; TEMP 98.3; O2SAT 97
== END 2025-04-29 10:34 | disposition short-term general hospital (02) ==
LOC: M ED 01:44 → EDBD 01:44 → M ED 10:34
DX: F10.239 Alcohol dependence with withdrawal, unspecified (principal); R00.0 Tachycardia, unspecified; I10 Essential (primary) hypertension; E78.5 Hyperlipidemia, unspecified; G47.30 Sleep apnea, unspecified; F17.200 Nicotine dependence, unspecified, uncomplicated; K21.9 Gastro-esophageal reflux disease without esophagitis; Z79.899 Other long term (current) drug therapy
CPT/HCPCS: 80053; 80143; 80307; 82077; 83735; 85025; 93005; 96374; 99285; J2060

== ENCOUNTER 2025-06-27 14:02 | Inpatient (IN) | payer MEDICAID, OTHER ==
[~2025-06-27] VITALS: Ht 195.6 cm; Wt 125.7 kg
[~2025-06-27 14:02] MED LIST changes: -ROSU10TA61 PO; +ROSU10TA90 PO
[2025-06-27 14:41] LABS: PLATELET COUNT, AUTOMATED 182 10^3/uL (150-450)
[2025-06-27 15:03] LABS: ETHYL ALCOHOL (ETHANOL) 0.269 % (0.000-0.010)
[2025-06-27 15:05] LABS: SALICYLATE LEVEL < 3.0 MG/DL (<30)
[2025-06-27 15:13] LABS: METHADONE URINE NEGATIVE (NEGATIVE); OPIATES URINE NEGATIVE (NEGATIVE)
[2025-06-27 15:14] LABS: ALT/SGPT 114 U/L (7.0-40); AST/SGOT 185 U/L (<34); CALCIUM LEVEL 7.8 MG/DL (8.5-10.1); CARBON DIOXIDE LEVEL 20 MMOL/L (20-31); CHLORIDE LEVEL 101 MMOL/L (98-107); CREATININE FOR GFR 1.41 MG/DL (0.70-1.30); GLOMERULAR FILTRATION RATE 60.3 (>56); POTASSIUM SERUM 4.0 MMOL/L (3.5-5.1); SODIUM LEVEL 136 MMOL/L (136-145)
[2025-06-27 15:14] LABS: AMPHETAMINES LEVEL URINE NEGATIVE (NEGATIVE); BARBITURATES URINE NEGATIVE (NEGATIVE); BENZODIAZEPINES URINE POSITIVE (NEGATIVE); CANNABINOIDS URINE NEGATIVE (NEGATIVE); COCAINE METABOLITE URINE NEGATIVE (NEGATIVE); PHENCYCLIDINE URINE NEGATIVE (NEGATIVE)
[2025-06-27] MEDS: NS (Normal Saline) 0.9% 1,000 ML IV ONE ×3 (15:35→18:10)
[2025-06-27] MEDS: THIAMINE 100 MG TAB PO SCH (16:05)
[2025-06-27] MEDS: FOLIC ACID 1 MG TAB PO SCH (16:05)
[2025-06-27] MEDS: MULTIVITAMINS/MINERALS THERAP 1 TAB PO SCH (16:05)
[2025-06-27] MEDS ORDERED: TRAZ-252 PO (17:24)
[2025-06-27] MEDS ORDERED: MIRT1TAB PO (17:24)
[2025-06-27] MEDS ORDERED: THIA100T7 PO (17:24)
[2025-06-27] MEDS ORDERED: D31000CA4 PO (17:24)
[2025-06-27] MEDS ORDERED: GABA-1172 PO (17:24)
[2025-06-27] MEDS ORDERED: MAGN400T2 PO (17:26)
[2025-06-27] MEDS ORDERED: LEXA1TAB2 PO (17:26)
[2025-06-27] MEDS ORDERED: HOME MED LIST COMPLETE! XX SCH (17:30)
[2025-06-27 18:41] LABS: CK-MB VALUE MASS 1.1 NG/ML (<3.6)
[2025-06-27 18:42] LABS: CPK CREATINE PHOSPHOKINASE 98 U/L (46-171); MB/CK RELATIVE INDEX 1.12 (< OR =4)
[2025-06-27 18:44] LABS: KETONE, URINE AUTO RFX NEGATIVE (NEGATIVE); LEUKOCYTE ESTERASE UR AUTO RFX NEGATIVE (NEGATIVE); MUCUS, URINE RFX SMALL (NEGATIVE); NITRITE, URINE AUTO RFX NEGATIVE (NEGATIVE); RBC, URINE AUTO RFX 0 /HPF (0-3); SQUAM EPITHELIAL CELL UR AURFX 0 /HPF (0-6); WBC, URINE AUTO RFX 0 /HPF (0-3)
[2025-06-27 18:57] LABS: CK-MB VALUE MASS 1.0 NG/ML (<3.6)
[2025-06-27 19:10] LABS: CPK CREATINE PHOSPHOKINASE 91.0 U/L (46-171); MB/CK RELATIVE INDEX 1.09 (< OR =4)
[2025-06-27] MEDS ORDERED: ONDANSETRON 4MG/2ML VIAL IV PRN (21:50)
[2025-06-27] MEDS: PANTOPRAZOLE 40MG VIAL IV SCH (22:31)
[2025-06-27] MEDS: GABAPENTIN 300 MG CAP PO SCH (22:32)
[2025-06-27] MEDS: NS (Normal Saline) 0.9% 1,000 ML IV SCH (22:33)
[2025-06-27] MEDS: OLANZapine INTRAMUSCULAR 10MG VIAL IM ONE (23:53)
[2025-06-27] MEDS: MIRTAZAPINE 7.5 MG PER 1/2 TABLET PO SCH (23:54)
[2025-06-27] MEDS: OXAZEPAM 15MG CAP PO SCH (23:54)
[2025-06-28] VITALS (16 sets, daily range): BP systolic 118–150; BP diastolic 75–102; TEMP 97.6–98.9; O2SAT 97–100
[2025-06-28] MEDS: traZODone 50 MG TAB PO SCH (00:30)
[2025-06-28 05:47] LABS: BASO # 0.0 10^3/uL (0.0-0.2); BASO % 0.6 % (0.0-1.0); EOS # 0.1 10^3/uL (0.0-0.5); EOS % 2.9 % (0.0-3.0); LYMPH # 2.2 10^3/uL (1.5-5.0); LYMPH % 64.9 % (24.0-44.0); MONO # 0.2 10^3/uL (0.0-0.8); MONO % 5.3 % (2.0-8.0); NEUTROPHILS % 26.0 % (36.0-66.0); PLATELET COUNT, AUTOMATED 139 10^3/uL (150-450)
[2025-06-28 06:11] LABS: CALCIUM LEVEL 7.3 MG/DL (8.5-10.1); CARBON DIOXIDE LEVEL 21.0 MMOL/L (20-31); CHLORIDE LEVEL 106.0 MMOL/L (98-107); CREATININE FOR GFR 1.09 MG/DL (0.70-1.30); GLOMERULAR FILTRATION RATE 82.2 (>56); POTASSIUM SERUM 3.9 MMOL/L (3.5-5.1); SODIUM LEVEL 139.0 MMOL/L (136-145)
[2025-06-28 06:13] LABS: ALT/SGPT 94.0 U/L (7.0-40); AST/SGOT 146.0 U/L (<34)
[2025-06-28 06:55] LABS: NEUTROPHILS # 0.9 10^3/uL (1.5-8.5)
[2025-06-28] MEDS: PANTOPRAZOLE 40MG VIAL IV SCH (08:19)
[2025-06-28] MEDS: ENOXAPARIN 40 MG/0.4 ML SYRINGE (J1650 PER 10MG) SC SCH (08:19)
[2025-06-28] MEDS: THIAMINE 100 MG TAB PO SCH (08:20)
[2025-06-28] MEDS: ESCITALOPRAM OXALATE 10 MG TABLET PO SCH (08:20)
[2025-06-28] MEDS: MULTIVITAMINS/MINERALS THERAP 1 TAB PO SCH (08:20)
[2025-06-28] MEDS: FOLIC ACID 1 MG TAB PO SCH (08:21)
[2025-06-28] MEDS: METOPROLOL SUCC. 50 MG *XL* TAB PO SCH (08:21)
[2025-06-28 08:22] LABS: ETHYL ALCOHOL (ETHANOL) 0.006 % (0.000-0.010)
[2025-06-28] MEDS: OLANZapine ORAL DISINTEGRATING TAB 5MG PO PRN (17:44)
[2025-06-29] VITALS (7 sets, daily range): BP systolic 129–155; BP diastolic 90–108; TEMP 97–98.8; O2SAT 96–97
[2025-06-29 05:09] LABS: BASO # 0.0 10^3/uL (0.0-0.2); BASO % 0.5 % (0.0-1.0); EOS # 0.1 10^3/uL (0.0-0.5); EOS % 3.2 % (0.0-3.0); LYMPH # 2.8 10^3/uL (1.5-5.0); LYMPH % 69.0 % (24.0-44.0); MONO # 0.2 10^3/uL (0.0-0.8); MONO % 3.9 % (2.0-8.0); NEUTROPHILS % 22.9 % (36.0-66.0); PLATELET COUNT, AUTOMATED 127 10^3/uL (150-450)
[2025-06-29 05:15] LABS: NEUTROPHILS # 0.9 10^3/uL (1.5-8.5)
[2025-06-29 05:32] LABS: CALCIUM LEVEL 7.8 MG/DL (8.5-10.1); CARBON DIOXIDE LEVEL 20.0 MMOL/L (20-31); CHLORIDE LEVEL 109.0 MMOL/L (98-107); CREATININE FOR GFR 1.03 MG/DL (0.70-1.30); GLOMERULAR FILTRATION RATE 88.0 (>56); POTASSIUM SERUM 3.6 MMOL/L (3.5-5.1); SODIUM LEVEL 141.0 MMOL/L (136-145)
[2025-06-29] MEDS ORDERED: CHLO25CA10 PO ×2 (10:02→10:05)
== END 2025-06-29 10:03 | disposition left against medical advice (07) | DRG 770 ==
LOC: M ED 14:02 → EDBD 14:02 → M ED INP 14:03 → UNDOADMOB 14:03 → M PCU 23:56 → OBSVTOIN 06-28 11:56
PROVIDERS: ADMIT Internal Medicine Nephrology; ATTEND Student in an Organized Health Care Education/Training Program
DX: F10.230 Alcohol dependence with withdrawal, uncomplicated (principal); N17.9 Acute kidney failure, unspecified; E87.20 Acidosis, unspecified; G62.1 Alcoholic polyneuropathy; I10 Essential (primary) hypertension; F41.9 Anxiety disorder, unspecified; F32.A Depression, unspecified; G47.00 Insomnia, unspecified; Z79.899 Other long term (current) drug therapy; K21.9 Gastro-esophageal reflux disease without esophagitis; K64.8 Other hemorrhoids; F17.200 Nicotine dependence, unspecified, uncomplicated

== ENCOUNTER 2025-07-13 04:08 | Emergency (ER) | payer OTHER ==
[~2025-07-13] VITALS: Ht 195.6 cm; Wt 117.1 kg
[~2025-07-13 04:08] MED LIST changes: +CHLO25CA10 PO; +D31000CA4 PO; +GABA-1172 PO; +LEXA1TAB2 PO; +MAGN400T2 PO; +MIRT1TAB PO; +THIA100T7 PO; +TRAZ-252 PO
[2025-07-13 04:54] LABS: BASO # 0.1 10^3/uL (0.0-0.2); BASO % 1.1 % (0.0-1.0); EOS # 0.1 10^3/uL (0.0-0.5); EOS % 2.8 % (0.0-3.0); LYMPH # 2.5 10^3/uL (1.5-5.0); LYMPH % 53.7 % (24.0-44.0); MONO # 0.3 10^3/uL (0.0-0.8); MONO % 6.9 % (2.0-8.0); NEUTROPHILS # 1.6 10^3/uL (1.5-8.5); NEUTROPHILS % 35.3 % (36.0-66.0); PLATELET COUNT, AUTOMATED 223 10^3/uL (150-450)
[2025-07-13 05:20] LABS: ETHYL ALCOHOL (ETHANOL) 0.067 % (0.000-0.010)
[2025-07-13 05:22] LABS: CALCIUM LEVEL 8.9 MG/DL (8.5-10.1); CARBON DIOXIDE LEVEL 21.0 MMOL/L (20-31); CHLORIDE LEVEL 102.0 MMOL/L (98-107); CREATININE FOR GFR 1.25 MG/DL (0.70-1.30); GLOMERULAR FILTRATION RATE 69.7 (>56); POTASSIUM SERUM 4.3 MMOL/L (3.5-5.1); SODIUM LEVEL 141.0 MMOL/L (136-145)
[2025-07-13] MEDS: THIAMINE 100 MG TAB PO SCH (05:43)
[2025-07-13 06:00] VITALS: TEMP 98.9
[2025-07-13] MEDS: FOLIC ACID 1 MG TAB PO SCH (09:21)
[2025-07-13] MEDS: MULTIVITAMINS/MINERALS THERAP 1 TAB PO SCH (09:21)
[2025-07-13 11:19] VITALS: O2SAT 96
[2025-07-13 11:21] VITALS: BP 141/91
== END 2025-07-13 11:24 | disposition home or self-care (01) ==
LOC: M ED 04:08 → EDBD 04:08 → M ED 11:24
DX: F10.239 Alcohol dependence with withdrawal, unspecified (principal); I10 Essential (primary) hypertension; F17.200 Nicotine dependence, unspecified, uncomplicated; E78.5 Hyperlipidemia, unspecified; K21.9 Gastro-esophageal reflux disease without esophagitis; Z79.899 Other long term (current) drug therapy
CPT/HCPCS: 80048; 82077; 85025; 96374; 96376; 99284; J2060